=== PATIENT | female | born 1975 | race Caucasian/White ===

== ENCOUNTER 2021-06-28 15:46 | Outpatient (CLI) | payer OTHER, SELFPAY ==
--- NOTE | 2021-06-28 15:50 | RAD_ITS ---
STUDY: X-RAY - LEFT ELBOW REASON FOR EXAM: Female, 46 years old. epicondylitis lateral Left TECHNIQUE: 3 view(s) of the elbow. COMPARISON: None. FINDINGS: BONES: No fracture demonstrated. JOINTS: No dislocation. SOFT TISSUES: Unremarkable. RAD/Elbow min 3 Views IMPRESSION: Unremarkable x-ray of the elbow. Electronically Signed: Maddison Valdez MD at 5:10 EDT ,
== END 2021-06-28 23:59 | disposition home or self-care (01) ==
LOC: MTRAD 15:50
PROVIDERS: PCP Family Medicine; Referring Provider Family Medicine; Visit Provider Family Medicine
DX: M77.12 Lateral epicondylitis, left elbow (principal)
CPT/HCPCS: 73080

== ENCOUNTER 2021-09-02 08:00 | Outpatient (RCR) | payer OTHER, SELFPAY ==
--- NOTE | 2021-09-02 10:10 | BH.SGPN.GN ---
Behaviors/Verbalizations/Mental Status: []Pt alert and oriented, neatly dressed and groomed. Eye contact good. Motor activity appropriate. Speech within normal limits. Affect congruent, mood euthymic. Thoughts linear, logical, no signs of hallucinations or delusions. Client Response/Progress/Benefit: []Pt responded well to session AEB pt listening attentively to others and taking notes. Pt was engaged throughout discussion introducing the topic of self-care and its importance. Group identified myths about self-care, such as self-care is selfish, takes too much money, takes too much time, has to be fun, and means one thinks they are more important than others. Contributed ideas as group identified self-care benefits to include: improved mood, reduced avoidance, better relationships, and more productivity. Pt appeared to benefit from increased knowledge of the importance and benefits of self-care. Will continue IOP tx to prevent decompensation, gain healthy coping skills, and reduce isolation. Narrative Note: []
--- NOTE | 2021-09-02 10:22 | BH.COMM_ITS ---
Communication Note - Communication with Client Communication Note: Met with pt to complete initial paperwork. No significant changes to pre-admission screening. Completed [facility] Scre[facility]. Mild to moderate risk. Pt reports chronic passive thoughts of ?my family would be better off without me? though denies any active thoughts, plan, or intent. She has a hx of 1 suicide attempt via OD in 2007 in which pt was not hospitalized and did not tell anyone at the time. Denies any other hx of attempt or gestures. Denies any active thoughts since that time. Denies access to lethal means. Reports her protective factors as children (16,18) and . I don't really have intent because I know killing myself would hurt my children. Denies active SI, plan, or intent today. Smiling at times. Appears motivated. Has been compliant with weekly individual counseling since intake. Met with her outpatient psychiatrist 2 weeks ago. Does not present as imminent danger due to no active SI, plan, or intent, contracts for safety, and reports protective factors. She denies hx of self-harm as well. Case discussed with Dr. Cortes with plan to admit to [facility] level of care with dx of F33.2.
--- NOTE | 2021-09-02 11:15 | BH.SGPN.GN ---
Behaviors/Verbalizations/Mental Status: []Pt alert and oriented, neatly dressed and groomed. Eye contact good. Motor activity appropriate. Speech within normal limits. Affect congruent, mood euthymic. Thoughts linear, logical, no signs of hallucinations or delusions. Client Response/Progress/Benefit: []Pt engaged participant AEB completing self-assessment worksheet and contributing input during discussion. Participated throughout group discussion on the various areas of self-care. Pt completed worksheet which identified current self-care practices and what self-care activities pt wants to start using. Pt selected physical self-care to begin practicing more consistently. Pt plans to do this by reducing isolation by changing her scenery every day and getting enough sleep. Appeared to benefit from completing the self-care evaluation and gaining insights into current self-care practices, as well as identifying areas in which she would like to improve upon. Will continue IOP tx to prevent decompensation, gain healthy coping skills, and reduce isolation. Narrative Note: []
--- NOTE | 2021-09-06 09:05 | BH.SGPN.GN ---
Behaviors/Verbalizations/Mental Status: [] Eye contact is good. Motor activity is appropriate. Appearance is casual. Speech is rapid, pressured. Mood is euthymic. Affect is full. Thoughts are linear and logical. No evidence of psychosis. Reviewed daily check in sheet and no reports of suicidal ideations or intent. Client Response/Progress/Benefit: [] Pt was an active participant in group discussion. Attentive. Daily symptom tracker notes 04/16/ for depression and irritability. Mental health wins were spending more time with her teenage sons. States that her depression was so severe that she would not leave her bedroom for days I lost a lot of time with my boys. Significant guilt about his as the are growing up and soon will be gone. Since starting a new medication recent she has noted improved mood and less isolation. More engaged and motivated. I'm only spending one day a week in my room. She also reports improved communication with her and decreased irritability. He speech is very rapid and pressured however she states that this is her baseline I'm always verbose. When asked to describe her emotion today she was unable stating I'm not sure ... I don't know. Progress noted which she attributes only to a medication change. Benefited from group support, encouragement, and feedback. Will continue in IOP to improve functioning, decreased isolation, increase healthy coping, and stabilize mood. Narrative Note: []
--- NOTE | 2021-09-06 10:10 | BH.SGPN.GN ---
Behaviors/Verbalizations/Mental Status: []Pt alert and oriented, neatly dressed and groomed. Eye contact good. Motor activity appropriate. Speech fast and and circumstantial. Affect congruent, mood euthymic. Thoughts linear, logical, no signs of hallucinations or delusions. Client Response/Progress/Benefit: []Pt was an engaged participant AEB pt listening attentively to others. Attentive during psychoeducation on communication styles. Assisted group with identifying barriers of effective communication which included: ?dropping hints,? texting, assumptions, yelling, and hurtful language. Pt identified they most often use passive-aggressive communication as pt is often sarcastic. Pt reports being passive-aggressive impacts pt by causing tension in relationships and not being direct with needs. Benefited from increased awareness of different communication barriers, styles, and the importance of communicating effectively to improve mental wellness. Will continue IOP tx to improve emotional regulation skills, increase self-awareness, and improve daily functioning. Narrative Note: []
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
--- NOTE | 2021-09-07 10:10 | BH.SGPN.GN ---
Behaviors/Verbalizations/Mental Status: []Pt alert and oriented, neatly dressed and groomed. Eye contact good. Motor activity appropriate. Speech rapid and tangential-interrupting others at times. Affect congruent, mood anxious. Thoughts linear, logical, no signs of hallucinations or delusions. Client Response/Progress/Benefit: []Pt responded well to session AEB taking notes throughout and listening attentively to others. Pt was attentive throughout group activity identifying famous individuals and how they overcame failure to be successful. Pt helped group identify how fear of failure can impact mental health and relationships. Pt personally identified it leads to fear of success, isolation, and hurts relationships. Pt participated in experiential activity, working with group members to problem solve. Appeared to benefit from increased knowledge of fear of failure. Will continue IOP tx to promote emotional regulation skills, combat distortions, and improve overall functioning. Narrative Note: []
[2021-09-07 10:27] VITALS: BP 145/91; PULSE 73
--- NOTE | 2021-09-07 11:15 | BH.SGPN.GN ---
Behaviors/Verbalizations/Mental Status: []Pt alert and oriented, neatly dressed and groomed. Eye contact good. Motor activity appropriate. Speech rapid and tangential. Affect congruent, mood euthymic. Thoughts linear, logical, no signs of hallucinations or delusions. Client Response/Progress/Benefit: []Pt responded well to session, engaged in the experiential activity and attentive throughout group processing. Pt reported fear of failure has kept pt from using her strengths and quality time with friends and family. Pt completed fear of failure worksheet and was able to identify thoughts and behaviors that reinforce personal fear of failure including unrealistic goals, self-sabotage, avoidance, and negative self-talk. Pt participated in small group discussion regarding strategies to overcome fear of failure. Identified wanting to work on setting realistic goals to reduce isolation and improve boundaries. Appeared to benefit from increased knowledge of strategies to combat fear of failure and gaining self-awareness. Pt will continue IOP tx to improve daily functioning, reduce negative thinking patterns, and improve self-awareness. Narrative Note: []
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
--- NOTE | 2021-09-07 13:14 | BH.DR.ITP ---
Initial Treatment Plan Patient Information Visit Information: ADMISSION DATE: EXPECTED LOS: 4-6 weeks Problems/Symptoms Problem #1:: Depression Symptom:: Sadness, hopelessness, worthlessness, anhedonia, guilt, passive thoughts of , low energy Problem #2:: Anxiety Symptom:: Worry, rumination, panic attacks
--- NOTE | 2021-09-27 11:15 | BH.SGPN.GN ---
Behaviors/Verbalizations/Mental Status: [] Client alert and oriented, casually dressed and appropriately groomed. Eye contact good. Motor activity appropriate.? Speech within normal limits. Affect congruent, mood euthymic. Thoughts linear and intact. no signs of delusions or hallucinations. Client Response/Progress/Benefit: [] Client responded well to session AEB listening attentively to peers, providing input, as well as taking notes. Client contributed throughout psychoeducation on different boundary setting styles and processing with group results of continuum. Client shared how she initially thought she was really strong at setting boundaries but, realizes her guilt prevents her from following through. Participated in group discussion brainstorming on potential negatives and positives of different boundary setting styles.Group provided with [place] setting tips and homework to practice one new boundary setting skill. Seemed to benefit from increased awareness of how different boundary styles can impact mental health. Will continue IOP tx to increase consistent application of skills, increase self-care and depression management, and increase overall functioning. Narrative Note: []
== END 2021-09-08 23:59 ==
LOC: BHIOP 08:00
PROVIDERS: PCP Family Medicine; Referring Provider Psychiatry & Neurology Psychiatry; Visit Provider Psychiatry & Neurology Psychiatry
DX: F33.2 Major depressive disorder, recurrent severe without psychotic features (principal); F41.8 Other specified anxiety disorders; Z79.899 Other long term (current) drug therapy; E66.9 Obesity, unspecified
CPT/HCPCS: S9480; 90853

== ENCOUNTER 2021-09-09 07:26 | Outpatient (RCR) | payer OTHER, SELFPAY ==
[2021-09-09 00:52] VITALS: BP 145/91; PULSE 73
--- NOTE | 2021-09-09 09:00 | BH.SGPN.GN ---
Behaviors/Verbalizations/Mental Status: [] Eye contact is good. Motor activity is appropriate. Appearance is casual. Speech is Appropriate. Mood is irritable. Affect is full. Thoughts are linear and logical. No evidence of psychosis. Reviewed daily check in sheet and no reports of suicidal ideations or intent. Client Response/Progress/Benefit: [] Pt was an active participant in group discussion. Attentive. Provided appropriate feedback. Daily symptom tracker notes 1/5 for depression and anxiety and 2/5 for irritability. Reports that her mood as been pretty consistent this week with no outstanding distress. Reports that she is functioning more effectively this week as well. Pt was significantly engaged in group discussions and shared extensively on the topics discussed from mental health stigma, feeling invalidated, and coping with emotions, acceptance, opposite-action, and being vulnerable. Benefited from group discussions and support. Pt appears to benefit from support and interaction with peers about mental health topics during process group. Will continue in IOP to maintain safety, increase functioning, prevent decompensation, and stabilize mood. Narrative Note: []
--- NOTE | 2021-09-09 10:15 | BH.SGPN.GN ---
Behaviors/Verbalizations/Mental Status: []Pt alert and oriented, neatly dressed and groomed. Eye contact good. Motor activity appropriate. Speech tangential. Affect congruent, mood anxious and dysthymic. Thoughts linear, logical, no signs of hallucinations or delusions. Client Response/Progress/Benefit: []Pt attentive listening to peers, contributing at times, and taking notes during session. Listened as the group brainstormed the positive and negative aspects of stress on physical and mental health. Group did well to identify the benefits of stress as well as the impact of distress on performance and mental health. Pt?s top stressors right now are mental health, lack of self-esteem, perfectionism, and procrastination. Pt shared her ?stress jar? is 75% full as medication is helping reduce symptoms, but pt still feels overwhelmed. Pt shared when her 'stress jar' is overflowing, pt gets short-tempered and isolates. Pt seemed to benefit from increased self-awareness of current stressors and impact stress has on mental health. Will continue IOP tx to promote use of healthy coping skills, reduce negative thinking patterns, and improve self-confidence. Narrative Note: []
--- NOTE | 2021-09-09 11:15 | BH.SGPN.GN ---
Behaviors/Verbalizations/Mental Status: []Pt alert and oriented, neatly dressed and groomed. Eye contact good. Motor activity appropriate. Speech tangential and rapid. Affect full, mood agitated. Thoughts linear, logical, no signs of hallucinations or delusions. Client Response/Progress/Benefit: []Pt participated at times during group discussions. Attentive during psychoeducation on the 4 A's of Coping with Stress (Avoid, Alter, Adapt, Accept). Participated in experiential activity in which group members had to utilize stress management skills in the moment. Pt agreed with peers that their anxiety and sense of urgency was a barrier and helped group problem-solve solutions. Pt engaged in review of the 4 A?s and picked wanting to work on adapting by redefining success and accepting small wins to reduce stress over time.? Benefited from processing in the moment stress management strategies and identifying new ways to cope with stress. Will continue in IOP to reduce negative thinking patterns, improve self-care, and improve daily functioning. Narrative Note: []
--- NOTE | 2021-09-09 13:39 | BH.MDN_ITS ---
Multi-Disciplinary Note - Note 45-min Individual Time Started:: 12:15 Date: 09/09/21 Purpose of session/treatment goals addressed:: Met with patient to review progress and currently symptoms. Goal-setting for treatment plan. Eye Contact:: Good Motor Activity:: Appropriate Speech:: Pressured Mood:: Anxious, Depressed Affect:: Congruent Thoughts:: Linear, Logical, No evidence of hallucinations/delusions noted Staff Interventions:: psychoeducation on: - cognitive distortions, CBT techniques, treatment planning, goal setting Client Response:: Pt reports that she is enjoying the IOP program and believes that she is benefiting. When asked about goals for the program pt reported; improving communication with support (listening more, not correcting or instructing them), increased patience, increased empathy for others, and taking more control of my life. She shared that it would benefit her to decreased negative automatic thoughts, be aware of cognitive distortions and mistaken beliefs, and to isolate less. Pt displayed numerous cognitive di stortions throughout the session which are heavily influencing her thoughts and actions. Primary distortions are mind-reading and absolute thinking. She reports isolating less and feeling better since starting new medication a couple weeks ago however continues to struggle with thought-reframing, perfectionism, communication, and irritability per her report. She reports feeling guilty about isolating and avoiding family for several months and feels intense responsibility to fix this. Risks/Concerns:: no risks or concerns noted. Progress Toward Goals/Plan:: Progress noted per pt report. She reports benefit from group psychoeducation and support. Since starting new medication a couple weeks ago her depression has decreased and she is not isolating in her room daily. She continues to report significant depression, negative automatic thoughts, guilt, anxiety, and irritability. Reports that her negative thoughts are emotionally and physically exhausting however despite this she is more engaged and action. While the medication has improved energy and motivation to leave her room her depression, cognitive distortions, and negative thoughts remains considerable. We agreed to start with cognitive distortions and she was given assignment to review cog distortions worksheet and complete a thoughts log over the holiday weekend with the goals to increase awareness of how often she is utilizing cognitive distortions. Time Stopped:: 13:00
--- NOTE | 2021-09-09 13:40 | BH.MTP_ITS ---
[facility] Treatment Plan - Patient Information Program Physician:: Rosa Vaughn Primary Therapist:: Hong Sweeney - Psychiatric Diagnoses Psychiatric Diagnoses:: 1. Major depressive disorder, recurrent, severe without psychosis. 2. Social anxiety disorder. 3. Alcohol use disorder in full remission since 2018 Diagnosis Code(s):: F33.2 - Estimated LOS Estimated LOS (in weeks):: 6 Problem/Goal #1 - Problem/Goal #1 Stated Goal:: Client will reduce depressive symptoms, worthlessness, lack of concentration, and negative core beliefs associated with major depressive disorder AEB by self-report and reduction of scores on the DSM-5 depression domain. Description of Barriers: Strong core mistaken beliefs, significant negative automatic thoughts, poor communication skill, limited social cues, long-standing depression, hx of limited progress in outpatient mental health treatment. Functional Impact: Pt was recently severely isolating due to depression (often staying in her room for days). Negative automatic thoughts impact her communication and behaviors. Not completing ADLS consistently. Mental health impacting familial responsibilities and social skills. Goal Relevant Strengths/Supports: outgoing, motivated, intelligent, engaged in treatment. - Objectives Objective #1 Stated Objective: Client will implement a thought log to record events, thoughts, emotions and behaviors. Will also identify 2-3 cognitive distortions that lead to depressive symptoms. Interventions: Through individual and group counseling client will learn about CBT, connection between thoughts/emotions/behaviors and cognitive distortions. Therapist will assign the client to self-monitor thoughts, feeling, and actions in daily journal; process the journal material to challenge depressive thinking patterns and replace them with reality-based thoughts. Discharge Criteria: Will be able to identify 2-3 cognitive distortions and will have completed a thought log. Target Date: 11/02/21 Review Date: 09/28/21 Objective #2 Stated Objective: Client will completed Mistaken Beliefs Questionnaire and review with therapist. Client will create realistic affirmations to challenge mistaken beliefs and be able to practice challenging these beliefs. Interventions: Through individual and group counseling will provide psychoeducation on mistaken beliefs and their role in negative automatic thoughts and depression. Discharge Criteria: Completed mistaken beliefs questionaire and review identified belief with therapist. Develop 2-3 strategies to challenge mistaken beliefs which lead to negative automatic thoughts. Target Date: 11/02/21 Review Date: 09/28/21 Problem/Goal #2 - Problem/Goal #2 Stated Goal:: Client will increase emotional regulation and reduce intensity and duration of anxiety symptoms AEB by pt self-report and reduction on anxiety domain of DSM- 5 scales. Description of Barriers: Strong core mistaken beliefs, significant negative automatic thoughts, poor communication skill, limited social cues, long-standing anxiety, hx of limited progress in outpatient mental health treatment. Functional Impact: In combination with depression pt's anxiety has contributed to isolation, avoidance, and conflict with support. Goal Relevant Strengths/Supports: outgoing, motivated, intelligent, engaged in treatment. - Objectives Objective #1 Stated Objective: Client will learn and implement 2-3 calming skills to reduce overall anxiety and manage anxiety Interventions: Through individual and group counseling will help client increase awareness of anxiety triggers and educate client on the ways anxiety impacts overall health. Therapist will teach client various calming and mindfulness strategies to promote emotional regulation and reduction of anxiety. Therapist will encourage client to implement healthy coping skills on a regular basis. Discharge Criteria: Be able to identify and consistently use 3 calming skills f or anxiety Target Date: 11/02/21 Review Date: 09/28/21
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
--- NOTE | 2021-09-13 09:05 | BH.SGPN.GN ---
Behaviors/Verbalizations/Mental Status: [] Eye contact is good. Motor activity is appropriate. Appearance is casual. Speech is pressured. Mood is depressed. Affect is full. Thoughts are linear and logical. No evidence of psychosis. Reviewed daily check in sheet and no reports of suicidal ideations or intent. Client Response/Progress/Benefit: [] Pt was an active participant in group discussion. Attentive. Daily symptom tracker notes 2/ for depression and anger. Pt states I'm struggling to identify any positives today. Shared with the group dynamic changes with communication with her and how this impacts her mental health and their relationship. She talked at length regarding this and was able to identify her frustrations and obstacles to assertive and healthy communication with her spouse particularly. Group had a brief discussion on healthy communication and that provided some feedback and examples of ways they have worked through obstacles. Benefited from group support, encouragement, and feedback. Will continue in IOP to maintain safety, increase healthy coping, decrease negative automatic thoughts, and improve functioning. Narrative Note: []
--- NOTE | 2021-09-13 10:10 | BH.SGPN.GN ---
Behaviors/Verbalizations/Mental Status: [] Client alert and oriented, casually dressed and groomed. Eye contact good. Motor activity appropriate. Speech within normal limits. Affect congruent, mood euthymic. Thoughts linear, logical, no signs of hallucinations or delusions. Client Response/Progress/Benefit: [] Client responded well to session AEB sharing and listening attentively to others. Client discussed how big supports for her included AA groups, sponsor, and community resources. Clinician provided psychoeducation on types of support including internal and external supports. Client participated in experiential activity illustrating the importance of having multiple social supports. Client provided supportive feedback and problem solving throughout group activity. Client participated in group processing of the activity.. Client appeared to benefit from increased knowledge of the benefits of social support and greater self-awareness. Will continue IOP treatment to continue increasing application of healthy coping skills and decreasing negative self-talk to improve daily functioning. Narrative Note: []
--- NOTE | 2021-09-13 11:10 | BH.SGPN.GN ---
Behaviors/Verbalizations/Mental Status: []Client alert and oriented, casually dressed and groomed. Eye contact good. Motor activity appropriate. Speech within normal limits. Affect congruent, mood irritable. Thoughts linear, logical, no signs of hallucinations or delusions Client Response/Progress/Benefit: []Client was an active participant throughout AEB contributing to discussion, providing personal examples, and taking notes. Client processed emotions she felt in the activity and how she coped in the moment with indicating high stress during group due to challenge of working together. She provided input during discussion on the types of support our supports can provide. Client was able to identify current support system and barriers that get in the way of using supports. Client stated she struggles most withe emotional support due to struggling to be vulnerable with others. Connected impact this can have on her mental health. Client seemed to benefit from identifying the type of support she needs to work on improving. Client recommended to continue IOP to continue use of healthy coping, challenge distorted thoughts and prevent decompensation. Narrative Note: []
--- NOTE | 2021-09-15 09:05 | BH.SGPN.GN ---
Behaviors/Verbalizations/Mental Status: [] Eye contact is good. Motor activity is appropriate. Appearance is casual. Speech is pressured. Mood is euthymic. Affect is full. Thoughts are linear and logical. No evidence of psychosis. Reviewed daily check in sheet and no reports of suicidal ideations or intent. Client Response/Progress/Benefit: [] Pt was an active participant in group discussion. Attentive. Emotion for today is optimistic. Daily symptom tracker notes 2/5 for depression and anger. Mental health win is feeling motivated and shared that she is getting out and participating in more social activities. Increased awareness of cognitive distortions since entering IOP identifying that she often mind reads others and believes that she knows what they are thinking about her and its usually negative. Shared that her thoughts are so automatic that seem to be out of her control which makes changing them seem impossible. She shared current stressors and how they impact her mental health . Benefited from group support, encouragement, and feedback. Progress noted as she reports increased awareness of cog. distortions. Will continue in IOP to maintain safety, increase healthy coping, and to improve functioning. Narrative Note: []
--- NOTE | 2021-09-15 10:20 | BH.SGPN.GN ---
Behaviors/Verbalizations/Mental Status: [] Eye contact is good. Motor activity is appropriate. Appearance is casual. Speech is Appropriate. Mood is anxious. Affect is congruent. Thoughts are linear and logical. No evidence of psychosis. Client Response/Progress/Benefit: [] Pt was an active participant in group discussion. Attentive during psychoeducation on Problem-Solving in the Moment Protocol. Participated in group experiential activity. Pt provided feedback during interactive group discussion in which pt and peers worked through an example of a problem (Managing Anxiety) in which they identified a goal (minimizing anxiety) and identified barriers. Barriers identified included lack of awareness, mental health stigma, distorted thinking, not having the tools/resources, and being afraid to fail. During the experiential activity pt worked with peers to problem solve using the Problem Solving in the Moment Protocol. Group was able to complete the activity and pt was able to practice in the moment problem-solving and make connections between problem-solving for activity and in real-life situations. Increased awareness of problem-solving strategies. Will continue in IOP to prevent decompensation, increase healthy coping skills, and improve functioning. Narrative Note: []
--- NOTE | 2021-09-15 11:20 | BH.SGPN.GN ---
Behaviors/Verbalizations/Mental Status: []Pt alert and oriented, casual dress, hygiene tended to. Eye contact good. Motor activity WNL. Speech rapid. Affect congruent, mood anxious and dysthymic. Thoughts linear, logical, no signs of hallucinations or delusions. Client Response/Progress/Benefit: []Pt engaged in session as evidenced by pt listening to others and providing input throughout. Pt practiced in the activity and expressed feeling frustration and anxious, but pt was able to cope by listening and problem-solving with peers. Pt identified a goal pt wants to work on which is to get back into crafting by making a sign for her car. Pt?s barriers included frustration, resentment, and getting easily overwhelmed. Pt also identified steps she could take such as start by driving to the place she keeps her crafts, selecting the specifics for her sign, and asking a support for help with follow through. Pt seemed to benefit from learning about problem solving method and rehearsing problem-solving skills in the moment. Pt will continue IOP tx to reduce negative thinking patterns, improve overall functioning, and reduce avoidance. Narrative Note: []
--- NOTE | 2021-09-16 09:05 | BH.SGPN.GN ---
Behaviors/Verbalizations/Mental Status: [] Eye contact is good. Motor activity is appropriate. Appearance is casual. Speech is pressured. Mood is anxious. Affect is congruent. Thoughts are linear and logical. No evidence of psychosis. Reviewed daily check in sheet and no reports of suicidal ideations or intent. Client Response/Progress/Benefit: [] Pt was an active participant in group discussion. Attentive. Daily symptom tracker notes 04/16/ for depression and agitation. Emotions for today is melancholy, distracted, and anxious. She reports a mental health win as working on the communication dynamics with her . She has discussed this in past groups and feels that effective and healthy communication has been a challenge for them. She feels that she is addressing her issues (mental health and communication) rather than ignoring, ruminating or over-analyzing. She shared her stressors. Continues to verbalize progress which she mainly believe is related to her medication. Progress noted. Benefited from group support, encouragement, and feedback. Will continue in IOP to maintain safety, improve functioning, and increase healthy coping skills. Narrative Note: []
--- NOTE | 2021-09-16 10:15 | BH.SGPN.GN ---
Behaviors/Verbalizations/Mental Status: []Eye contact is good. Motor activity is appropriate. Appearance is casual. Speech is tangential. Mood is dysthymic. Affect is constricted. Thoughts are linear and logical. No evidence of psychosis. Client Response/Progress/Benefit: []Pt was an active participant in group discussion and activity. Attentive during psychoeducation on the stages of change. Pt participated in interactive discussion on emotions associated with change (happy, anxious, proud, shocked, surprised, guilty, etc). Pt along with peers identified barriers that may prevent one from making change such as fear of failure, all or nothing thinking, and not always giving herself permission. Group able to identify the benefits to changes such as acceptance, patience, self-awareness, and personal growth. Benefited from increased awareness of emotions related to change, the change process, and benefits/barriers to change. Will continue in IOP to increase emotional regulation skills, reduce negative thinking patterns, and improve daily functioning. Narrative Note: []
--- NOTE | 2021-09-16 14:29 | BH.MDN ---
Multi-Disciplinary Note - Note 60-min Individual Time Started:: 12:20 Date: 09/16/21 Purpose of session/treatment goals addressed:: Reviewed progress and current symptoms. Addressed treatment plan goal 1. Eye Contact:: Good Motor Activity:: Appropriate Appearance:: Casual Speech:: Rapid Mood:: Depressed Affect:: Full Thoughts:: Linear, Logical, No evidence of hallucinations/delusions noted Staff Interventions:: thought challenging, psychoeducation on: - cognitive distortions., CBT techniques, rapport building Client Response:: Pt was tearful throughout the session reporting significant self-critical thoughts. She reports being frustrated with a myriad of her actions and responses while in IOP and at home. I'm extreme ? I either talk too much or I shut down ? there is no in-between. Hyper-critical of being too talkative in group today which lead to memories of her mother telling her to shut-up. Talks excessively because she wants to help, be seen as smart, and solve the problem. Admits to shutting down at times during group activities this week as well due to struggling with an obstacle. Pt shared her thought log with therapist and we worked on challenging cognitive distortions. She was tearful stating I'm going to fail at this I'm fearful that I won't be able to fix things. Fear of failure along with numerous cognitive distortions were identified in the thought log. We challenged several and she responded well. Plan is to continue with thought log and add portion where she identifies cognitive distortions used with goal to increased awareness and accept that these thoughts are distortions and not facts. Risks/Concerns:: No risks or concerns noted Progress Toward Goals/Plan:: Progress noted per pt report. She continues to be consistent and engaged in IOP. Increased awareness of cognitive distortions and has been maintaining a thoughts log which we reviewed. Pt was tearful throughout the session reporting an overabundance of negative automatic thoughts and overwhelming emotions. She mind-reads every action or non-action from those around her as being the result of something she did wrong or something she did to upset them. While she is not isolating in her room she continues to present with significant depression, anxiety, and guilt which impact her functioning. Plan is to continue in IOP to maintain safety, improve functioning, and increase healthy coping. Time Stopped:: 13:15
--- NOTE | 2021-09-20 09:05 | BH.SGPN.GN ---
Behaviors/Verbalizations/Mental Status: [] Eye contact is good. Motor activity is appropriate. Appearance is casual. Speech is Appropriate. Mood is euthymic. Affect is full. Thoughts are linear and logical. No evidence of psychosis. Reviewed daily check in sheet and no reports of suicidal ideations or intent. Client Response/Progress/Benefit: [] Pt was an active participant in group discussion. Attentive. Daily symptom tracker notes 25 for depression/anxiety and /5 for irritability. Emotion for today is upbeat. Able to identify several mental health wins this AM which may have contributed to her positive mood. She went for a walk this AM and instead of going back to bed chose to sit on the porch. She also reached out to for company rather than sitting alone with myself. She also gave herself permission to complete self-care yesterday afternoon. Its weird she states when discussing accomplishing tasks which improve her mental health. Her stressors continues to be communication with her and her negative automatic thoughts. Progress noted per pt report. Benefited from group support, encouragement, and feedback. Will continue in IOP to maintain safety, increase healthy coping, and to prevent decompensation. Narrative Note: []
--- NOTE | 2021-09-20 10:15 | BH.SGPN.GN ---
Behaviors/Verbalizations/Mental Status: [] Eye contact is good. Motor activity is appropriate. Appearance is casual. Speech is pressured/rambling. Mood is anxious. Affect is congruent. Thoughts are linear and logical. No evidence of psychosis. Client Response/Progress/Benefit: [] Pt was an active participant in group discussions. Attentive during psychoeducation. Participated in experiential activity. Pt participated in interactive discussion on the consequences of unhealthy expression of emotions. Pt along with peers identified several consequences which included; judgement from others, can push people away, people will keep information from us for fear we cannot handle it, we are perceived as angry or crazy, impacts our ability to effectively communicate. Pt also participated in interactive discussion on common potholes to effectively communicating which included; not focusing on topic at hand, too many issues/concerns at once, assumptions, jumping to conclusions, sarcasm, listening only to respond, and mental health struggles. Pt was able to relate and make connections between the experiential activity and the overall topic. Benefited from increased awareness of how stress and emotions can impact one's ability to communicate. Will continue in IOP to prevent decompensation, increase healthy coping, and improve functioning. Narrative Note: []
--- NOTE | 2021-09-20 11:10 | BH.SGPN.GN ---
Behaviors/Verbalizations/Mental Status: []Pt alert and oriented, neatly dressed and groomed. Eye contact good. Motor activity appropriate. Speech rapid, circumstantial. Affect constricted, mood anxious. Thoughts linear, logical, no signs of hallucinations or delusions. Client Response/Progress/Benefit: []Pt engaged in session AEB client listening attentively to peers and providing input. Attentive during psychoeducation on 4 zones of regulation. Pt able to identify feelings and behaviors for each zone. Pt identified coping skills one can use to support self in each zone. Pt stated belief that pt is in the yellow and green zone today as pt feels social and more motivated, but pt is also anxious about maintaining this. Pt reports continuing to set goals and practice self-care will help pt stay regulated. Benefited from increased education on zones of regulation or stages of alertness for emotions and healthy coping skills to use for each zone. Pt will continue IOP tx to improve interpersonal effectiveness skills, increase emotional regulation skills, and reduce isolation. Narrative Note: []
--- NOTE | 2021-09-22 09:01 | BH.SGPN.GN ---
Behaviors/Verbalizations/Mental Status: []Eye contact is good. Motor activity is appropriate. Appearance is casual. Speech is Appropriate. At times rambling. Mood is anxious. Affect is congruent. Thoughts are linear and logical. No evidence of psychosis. Reviewed daily check in sheet and no reports of suicidal ideations or intent. Client Response/Progress/Benefit: []Client responded well to session AEB listening attentively to others and providing feedback and thoughts to group. Client identified mental health win as taking her dogs for a walk yesterday after getting up and didn't go back to bed. Client reported additional win as having self compassion this morning to allow herself to relax. Client stated current stressor is not having space for her crafting things that she has been storing at a friends house but this friend is now moving. Client reported additional mental health stressor is going to a family reunion and worried about family drama. Client reported she is trying to challenge this negative thinking and focus on the potential fun and memories that she can have. Seemed to benefit from peer support and expressing thoughts. Client to continue IOP to consistently apply healthy coping skills, challenge distorted thoughts and prevent decompensation. Narrative Note: []
--- NOTE | 2021-09-22 11:15 | BH.SGPN.GN ---
Behaviors/Verbalizations/Mental Status: []Pt alert and oriented, neatly dressed and groomed. Eye contact good. Motor activity appropriate. Speech tangential. Affect constricted, mood anxious and dysthymic. Thoughts linear, logical, no signs of hallucinations or delusions. Client Response/Progress/Benefit: []Pt engaged during activity, encouraging peers and contributed as group brainstormed ideas on how to cope with internal barriers that keep pts stuck from moving towards goals. Able to identify barriers to desired reality. Identified barriers to current reality to include: all or nothing thinking, lack of motivation, and fear of making progress. Pt wants to work on overcoming the barrier of all or nothing thinking by reminding herself that there is a ?good rutledge? and that pt can be struggling and making progress. Benefited from group by identifying obstacles and solutions to desired reality.? Pt will continue IOP tx to prevent self-reported self-sabotaging behaviors, improve overall functioning, and reduce negative thinking. Narrative Note: []
--- NOTE | 2021-09-22 15:23 | BH.MDN ---
Multi-Disciplinary Note - Note 45-min Individual Time Started:: 12:30 Date: 09/22/21 Purpose of session/treatment goals addressed:: Reviewed current symptoms and progress in IOP. Addressed treatment plan goals 1 and 2. Eye Contact:: Good Appearance:: Casual Speech:: Pressured, Rapid Mood:: Anxious Affect:: Congruent Thoughts:: Linear, Logical, No evidence of hallucinations/delusions noted Staff Interventions:: psychoeducation on: - mistaken beliefs, perfectionism, CBT techniques Client Response:: Pt did not complete homework activity to track thoughts, emotions, and cognitive distortions. She also did not fully complete mistaken beliefs questionnaire that was given to her at the beginning to the week and we spent a few moments reviewing this and completing it together (she had challenges with some questions). She was able to verbally recall identifying using absolute thinking on several occasions. Tearful stating I can't be OK with being in the rutledge zone. Belief that she her thoughts and actions are either right or wrong. We spent some time challenging and tryin to reframe this thoughts however it is very engrained. She is able to identify cog distortions however struggles to reframe or challenge due to these strong core beliefs. We practiced challenging and reframing thoughts about upcoming family reunion this weekend. Challenged unrealistic expectations. Also discussed how her communication specifically excessive talking impacts her relationships. She gave examples of feeling compelled to talk (sometimes over people) and dominate a conversation which has led to pushing others away. We set up goal to practice limiting her talking in group to sharing 3 times for less than 30 seconds. Normalized working on this goal as we have had patients set goals to increase sharing in group. Risks/Concerns:: no risks or concerns noted. Progress Toward Goals/Plan:: Progress noted. She believes that obstacles and setbacks are not impacting her as much. States If something goes wrong it doesn't ruin my whole day. Gave recent examples. Originally credited this to her medications however was able to admit that she is beginning to utilize skills more consistently. Pt has very strong core mistaken beliefs which are impacting most of her daily thoughts. She second guesses all her actions and interactions with others. She mentions that after she shares in group she immediately criticizes herself and believes other are judging her negatively. She did not completed assignments given however agrees to complete thought log previous to next session. Plan is to start with core beliefs as addressing these may increase probability of reframing and thought challenging being more effective. She was given a psychoeducation sheet on mistaken beliefs specifically perfectionism to review. Time Stopped:: 13:15
--- NOTE | 2021-09-27 09:00 | BH.SGPN.GN ---
Behaviors/Verbalizations/Mental Status: []Pt alert and oriented, neatly dressed and groomed. Eye contact good, motor activity appropriate, speech WNL. Affect congruent, mood anxious. Thoughts linear, logical, no signs of hallucinations or delusions. No risk reported on pt's daily symptom tracker. Client Response/Progress/Benefit: []Pt responded well to session, providing encouragement to peers. Pt reports feeling overwhelmed this morning as pt recently got back from a family reunion and now she is realizing there's a lot of projects at home. Pt is trying to challenge her all or nothing thinking and focus on small steps she can take, rather than telling herself she has to do everything at once. Pt stated the reunion went well and it gave pt an opportunity to practice healthy coping skills like focusing on the big picture and managing irritability. Pt appeared to benefit from reflecting on use of coping skills and identifying more realistic goals for herself. Pt will continue IOP tx to prevent decompensation, challenge distorted thinking, and improve daily functioning. Narrative Note: []
--- NOTE | 2021-09-27 10:10 | BH.SGPN.GN ---
Behaviors/Verbalizations/Mental Status: [] Eye contact is good. Motor activity is appropriate. Appearance is casual. Speech is Appropriate. Mood is euthymic. Affect is congruent. Thoughts are linear and logical. No evidence of psychosis. Client Response/Progress/Benefit: [] Client responded well to session AEB sharing and listening attentively to others. Client participated in group discussion defining boundaries and why having healthy boundaries is important. Client shared recent experiences where she had to use boundaries and the positives that came from it. Client appeared to connect to psychoeducation on types of boundaries, including physical, emotional, and intellectual. Client listened attentively and nodding throughout discussion in which group members shared personal examples of different types of boundaries. Client noted times where others have invalidated her and she had to strengthen her emotional boundaries. Client appeared to benefit from increased knowledge of the types of boundaries and increased self-awareness of personal boundaries. Will continue IOP treatment to increase depression management skills and independent coping skills to improve daily functioning. Narrative Note: []
--- NOTE | 2021-09-28 09:00 | BH.SGPN.GN ---
Behaviors/Verbalizations/Mental Status: []Pt alert and oriented, casually dressed and groomed. Eye contact good. Motor activity appropriate. Speech within normal limits. Affect congruent, mood euthymic. Thoughts linear, logical, no signs of hallucinations or delusions. Reviewed pt?s symptom tracker, no risk for suicidal ideation, plan, or intent. Client Response/Progress/Benefit: []Client responded well to session AEB client listening attentively to peers and sharing thoughts and feelings. Client reported mental health positive as going to movie last night with her despite wanting to stay home. Client stated it was positive to get out of the house and connect with her . Client reported additional positive as improved communication with her . Client reported she also has been working on setting more realistic expectations in regards to her house chores. Client reported current stressor is having to start taking steps to work on slowly cleaning her house room by room. Client seemed to benefit from connection with peers and expressing thoughts and feelings. Client to continue IOP to improve emotion regulation, increase consistent use of healthy coping and prevent decompensation. Narrative Note: []
--- NOTE | 2021-09-28 12:03 | PCM.BH.PN ---
Progress Note Progress Note: And history of Present Illness/Interim History: [] The patient is a 46-year-old female with a history of depression, anxiety and alcohol use disorder who is seen in follow-up at the [facility] behavioral health intensive outpatient program. I last saw the patient 3 weeks ago and she states that she has found the IOP program to be very valuable to her and feels she has learned valuable skills since she started the program. She has become also increasingly aware of some of her dysfunctional core beliefs and this has taken some of the power away from them she feels. She still feels overwhelmed at times but she is less depressed and denies hopelessness or worthlessness. She denies passive thoughts of , suicidal ideation, plan for suicide, homicidal ideation, hallucinations, delusions. She has been consistent and engaged in treatment according to the [facility] staff. She has remained sober from all alcohol use since July 10, 2017 and sober for him from any substance use. Her panic attacks have greatly resolved also in the past several weeks. Current Psychiatric Medications: [] Trental X 10 mg p.o. daily (x1 month); Effexor XR 37.5 mg p.o. daily (being weaned); Lamictal 100 mg p.o. daily (x6 weeks but may be increased soon per patient). Mental Status Examination: [] The patient is a 46-year-old female who appears normal for stated age and is casually dressed and groomed with good hygiene. She has no psychomotor agitation or retardation. She is cooperative during the interview with good eye contact. Speech is normal rate and rhythm and fluent with no pressure. Mood is euthymic today. Affect is full and normal. Thought process is goal-directed and organized. Thought content: There is evidence of hopefulness for the future that she will be able to manage her mental health symptoms well. There is no evidence of passive thoughts of , suicidal ideation, plan for suicide, homicidal ideation, hallucinations, or delusions. Reality testing is intact. Judgment is intact. Insight: Good. Impulsivity: Moderate. Diagnoses: [] 1. Major depressive disorder, recurrent, severe without psychosis (resolving) 2. Social anxiety disorder 3. Alcohol use disorder in full remission since 2018 4. Rule out history of opiate/benzo use disorder 5. Primary support issues Plan: [] The patient will continue the IOP program at [facility] as the structure, support, education and group therapy will hopefully prevent worsening of the patient's symptoms which could require hospitalization. She felt safe during the interview and if it anytime she does not feel safe she will let us know or go to the emergency room. The risks, options, possible complications and side effects of the medications were again discussed with the patient and she understands and accepts these. No medication changes were made today. The patient understands the importance of staying sober from alcohol and all other substances. She will continue to follow-up with her outpatient providers and I will see the patient in follow-up while in the IOP program.
--- NOTE | 2021-09-28 13:00 | BH.MDN ---
Multi-Disciplinary Note - Note 60-min Individual Time Started:: 10:10 Date: 09/28/21 Purpose of session/treatment goals addressed:: Reviewed current progress and symptoms. Addressed treatment plan goals 1 and 2. Eye Contact:: Good Motor Activity:: Restless Appearance:: Casual Speech:: Pressured, Rapid Mood:: Anxious Affect:: Congruent Thoughts:: Linear, Logical, No evidence of hallucinations/delusions noted Staff Interventions:: thought challenging, psychoeducation on: - social skills,, CBT techniques Client Response:: Pt shared a few examples over the weekend of using skills to stay in the rutledge zone and avoid absolute thinking. She believes that she has increased awareness of when she is utilizing cognitive distortions with thought log which has helped decrease negative thinking. We briefly reviewed the results of her mistaken beliefs questionnaire which identified core mistaken beliefs as; believing she is powerless over outside circumstances, her self-worth is dependent on others' approval, self-worth dependent on external achievements, and the belief that she has to be perfect in many areas of her life. While discussing core beliefs a discussion was had on how these relate to oversharing and excessive talking which have impacted relationships. Oversharing is used to prove that she has value. Tearful. Oversharing and poor identification of social cues often pushes people away and leads pt to isolate. We reviewed very common cues to indicate someone is interested in ending a conversation and she states I never knew that ? Nobody has ever told me about those. Seeking connection and validation with oversharing however others viewing her as bragging, having no boundaries, dominating conversations, and annoying. She was open to setting some social goals to utilize in groups. Risks/Concerns:: no risks or concerns noted. Progress Toward Goals/Plan:: Tearful throughout the session. She has very rigid core beliefs which originated at an early age. These beliefs are impacting automatic thoughts and her emotions. Making progress through psychoeducation and thought log. We are also focusing on improving communication skills and social cues. Plan is to continue in IOP to prevent decompensation, maintain safety, and increased healthy coping. Time Stopped:: 11:00
--- NOTE | 2021-09-29 09:00 | BH.SGPN.GN ---
Behaviors/Verbalizations/Mental Status: [] Eye contact is good. Motor activity is appropriate. Appearance is casual. Speech is Appropriate. Mood is euthymic. Affect is full. Thoughts are linear and logical. No evidence of psychosis. Reviewed daily check in sheet and no reports of suicidal ideations or intent. Client Response/Progress/Benefit: [] Pt was an active participant in group discussions. Attentive. Provided appropriate feedback. Daily symptom tracker notes 04/16 for anxiety. Mental health win was I slept 10 hours last night ... I must have needed it. Shared how this was beneficial and not isolating or escaping. She discussed how she was able to be present with her family last evening. They cooked and ate dinner together which they have not done in a long time. 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 She utilize opposite-action and choose to engage and noted benefits to this. Her goal this weekend is to begin 15 minute projects. She reports being overwhelmed with projects before she starts which lead to inaction and avoidance. She is trying to set small SMART goals to begin to chip away at certain projects in her house. Progress noted per pt report. Benefited from group support, encouragement, and feedback. Will continue in IOP to prevent decompensation, stabilize mood, and increase functioning. Narrative Note: [] Behaviors/Verbalizations/Mental Status: [] Eye contact is good. Motor activity is appropriate. Appearance is casual. Speech is Appropriate. Mood is euthymic. Affect is full. Thoughts are linear and logical. No evidence of psychosis. Reviewed daily check in sheet and no reports of suicidal ideations or intent. Client Response/Progress/Benefit: [] Pt was an active participant in group discussions. Attentive. Provided appropriate feedback. Daily symptom tracker notes 04/16 for anxiety. Mental health win was I slept 10 hours last night ... I must have needed it. Shared how this was beneficial and not isolating or escaping. She discussed how she was able to be present with her family last evening. They cooked and ate dinner together which they have not done in a long time. 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 She utilize opposite-action and choose to engage and noted benefits to this. Her goal this weekend is to begin 15 minute projects. She reports being overwhelmed with projects before she starts which lead to inaction and avoidance. She is trying to set small SMART goals to begin to chip away at certain projects in her house. Progress noted per pt report. Benefited from group support, encouragement, and feedback. Will continue in IOP to prevent decompensation, stabilize mood, and increase functioning. Narrative Note: []
--- NOTE | 2021-09-29 10:10 | BH.SGPN.GN ---
Behaviors/Verbalizations/Mental Status: []Pt alert and oriented, casually dressed and grooming appears tended to. Eye contact good. Motor activity appropriate. Speech within normal limits. Affect congruent, mood euthymic. Thoughts linear, logical, no signs of hallucinations or delusions. Client Response/Progress/Benefit: []Pt engaged throughout AEB taking notes, listening attentively, and providing input throughout. Attentive during psychoeducation and discussed the importance of goal-setting with the group. Group identified potential benefits of having goals to include: they motivate, increase self-confidence, provide a sense of accomplishment, help improve relationships, and provide a sense of purpose. Group also worked together to identify barriers to goal-setting which included; all or nothing thinking, self-doubt, toxic environment, lack of motivation, and unrealistic expectations. Pt identified personal barriers to include unrealistic expectations and quitting due to all or nothing thinking. Benefited from increased awareness of benefits and barriers to goal-setting. Pt will continue in IOP to improve mood stability, reduce isolation, and improve daily functioning. Narrative Note: []
--- NOTE | 2021-09-29 11:10 | BH.SGPN.GN ---
Behaviors/Verbalizations/Mental Status: []Client alert and oriented, casually dressed and groomed. Eye contact good. Motor activity appropriate. Speech loud. Affect congruent, mood anxious. Thoughts linear, logical, no signs of hallucinations or delusions. At times rambling. Client Response/Progress/Benefit: []Pt was an active participant in group discussions and activities. Engaged in activity. Pt identified a SMART goal for the next week is to: spend 15 minutes everyday on cleaning specific areas of her house. Pt reported this would benefit her by decreasing her feelings of being overwhelmed when home and able to see progress with her mental health. Identified procrastination, low motivation, negative self-talk, frustration, and setbacks as potential barriers to completing this goal. Pt able to identify several solutions that can help overcome identified barriers. Benefited from group by being able to utilize SMART educate to create a goal. Pt to continue IOP to decrease distorted thoughts, increase confidence and prevent decompensation.
--- NOTE | 2021-09-30 08:39 | BH.MTP_ITS ---
Treatment Plan Review Date of Admission:: 09/02/21 Date of Treatment Plan Review:: 09/28/21 Admitting Diagnoses:: 1. Major depressive disorder, recurrent, severe without psychosis. 2. Social anxiety disorder. 3. Alcohol use disorder in full remission since 2018 Current Diagnoses:: 1. 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 2. Social anxiety disorder. 3. Alcohol use disorder in full remission since 2018 Patient's Response to Treatment:: Pt has shown consistent attendance while in IOP. When present she is engaged however struggles with oversharing and excessive talking. Also struggles with identifying social cues from peers. He feedback is on topic and she shows insight into topics discussed. Medication compliant. Status of Current Problems and Symptoms: According to pt IOP has been beneficial. She has found the IOP program to be very valuable to her and feels she has learned valuable skills since she started the program. She has become also increasingly aware of some of her dysfunctional core beliefs and this has taken some of the power away from them she feels. She still feels overwhelmed at times but she is less depressed and denies hopelessness or worthlessness. She denies passive thoughts of , suicidal ideation, plan for suicide, homicidal ideation, hallucinations, delusions. She has remained sober from all alcohol use since July 10, 2017 and sober from any substance use. Her panic attacks have greatly resolved also in the past several weeks. Despite self- report her outcomes scores have actually increased since IOP admission. Pt has shown 50% increase in overall symptoms since admission. Scores in the depression domain have increase 33% and scores in the anxiety domain have doubled. Scores in the anger domain have not changed. Problem #1 Problem Name:: Depression. Status of Goals:: Overall Goal- In progress (refer above). obj1- Has started thought log, can identify numerous cog. distortions however early in identifying strategies to challenge negative thoughts and cog. distortions. obj2- completed mistaken beliefs questionnaire. Has not reviewed with therapist and begun to challenge these beliefs. Team Recommendations:: Continue with current plan and IOP. Increase in outcomes may indicate minimizing current struggles in group and with professionals. Problem #2 Problem Name:: Anxiety Status of Goals:: Overall goal- in progress (refer above). Obj1- Pt is able to identify calming skills however struggles with consistently use these skills when in distress. Team Recommendations:: Continue with current plan and IOP.
--- NOTE | 2021-10-04 09:00 | BH.SGPN.GN ---
Behaviors/Verbalizations/Mental Status: [] Client alert and oriented, casually dressed and groomed. Eye contact good. Motor activity appropriate. Speech within normal limits. Affect congruent, mood euthymic, Thoughts linear, logical, no signs of hallucinations or delusions. Reviewed client?s symptom tracker, no risk for suicidal ideation, plan, or intent as of 10/04/21 Client Response/Progress/Benefit: [] Client responded well to group by attentively listening and sharing with group. Client shared helpful coping techniques that she utilizes with the group. Reported that her emotion of the day was slightly irritated. Client went on to say she feels this way because she has noticed positive advancements towards her mental health goals, which has caused her to care more. Client said that since she cares more about the way her house looks, it is causing irritation. Client said her mind space is overall positive and feels she is able to make more positive choices. Client seemed to benefit from feedback from group member and validation on current feelings. They will continue IOP tx to decrease depressive symptomatology, reduce irritability, and increase overall functioning. Narrative Note: []
--- NOTE | 2021-10-04 10:05 | BH.SGPN.GN ---
Behaviors/Verbalizations/Mental Status: []Client present via telehealth. Eye contact is good. Motor activity is appropriate. Appearance is casual and grooming tended to. Speech is Appropriate. Mood is euthymic. Affect is congruent. Thoughts are linear and logical. No evidence of psychosis Client Response/Progress/Benefit: [] Client receptive of session, actively engaged throughout AEB taking notes and providing input and examples to discussion. Appeared to connect with group topic of cognitive distortions and the impact of thought patterns on mental health, coping behaviors, and relationships. Reflected that she personally tends to struggle with distortions of all of nothing thinking and emotional reasoning. Client reported that there are times where she will feel worthless then truly believe it when she emotionally reasons. Client appeared to benefit from gaining insight on distorted thinking patterns and how this impacts overall mental health. Progress noted in client report of improved insight and ability to combat distortions with alternative positive thoughts. Will continue IOP tx to further improve mood stability, reduce anxiety and avoidance, and increase overall functioning. Narrative Note: []
--- NOTE | 2021-10-04 11:10 | BH.SGPN.GN ---
Behaviors/Verbalizations/Mental Status: [] Eye contact is good. Motor activity is appropriate. Appearance is casual and grooming tended to. Speech is Appropriate. Mood is euthymic. Affect is congruent. Thoughts are linear and logical. No evidence of psychosis Client Response/Progress/Benefit: [] Client responded well to session AEB input and examples during group activity. Group discussed and practiced methods of reframing cognitive distortions. Client participated in identifying cognitive distortions when examples were provided. Client discussed in group the different strategies to overcome the distortions by practicing reframing. Client identified that they see themselves being impacted by using all of the cognitive distortions and gave example of using personalization with seeing herself as a failure of success as a mom based off of decisions her daughter makes. Client made plan to identify and challenge thoughts that contribute to it as homework over the next couple of days. Will continue tx to further promote mood stability, decrease presenting anxiety, and prevent decompensation. Narrative Note: []
--- NOTE | 2021-10-05 09:05 | BH.SGPN.GN ---
Behaviors/Verbalizations/Mental Status: [] Eye contact is good. Motor activity is appropriate. Appearance is casual. Speech is pressured/rapid. Mood is anxious/irritable. Affect is congruent. Thoughts are linear and logical. No evidence of psychosis. Reviewed daily check in sheet and no reports of suicidal ideations or intent. Client Response/Progress/Benefit: [] Pt was an active participant in group discussion on mindfullness. Attentive. Provided appropriate feedback. Emotion for today is irritable. Daily symptom tracker notes 04/16 for anxiety and depression. Mental health wins include setting boundaries with a friend stating I was able to say no. Shared several examples of how she was challenging cognitive distortions. I wasn't worrying what others MIGHT be thinking about me. Reframed and challenging mind-reading thoughts and was able to make a decision to benefit herself instead of others. She talked extensively regarding a stressor involving storage of her craft supplies (which there are a lot). Currrently had to move them out of friend's storage and now they are in her living room which upsets her and may irritate others. I'm sitting with this which is uncomfortable which is a win however she must find a space for them. I'm not isolating in my room. Another stressor is that her elderly parents have COVID. Progress noted per pt report. Benefited from group support, encouragment, and feedback. Will continue in IOP to prevent decompensation, increase healthy coping, and improve functioning. Narrative Note: []
--- NOTE | 2021-10-05 10:15 | BH.SGPN.GN ---
Behaviors/Verbalizations/Mental Status: []Pt alert and oriented, casually dressed and groomed. Eye contact good. Motor activity appropriate. Speech rapid. Affect congruent, mood anxious and euthymic. Thoughts linear, logical, no signs of hallucinations or delusions. Client Response/Progress/Benefit: []Pt engaged during session AEB Pt contributing thoughts throughout discussion and completing worksheet. Connected with discussion on crisis and how coping with external crises by using unhealthy coping skills could result in a personal crisis. Group reflected on the importance of having awareness of personal warning signs to prevent reaching crisis point. Group identified potential warning signs for crisis and Pt completed the personal warning signs worksheet. Pt identified personal crisis warning signs to include: lack of self-care, negative thinking, and overusing distractions.?Pt benefited by increasing awareness of what leads to crisis and personal warning signs. Pt will continue IOP tx to further improve mood stability, increase self-confidence, and reduce negative thinking patterns.? Narrative Note: []
--- NOTE | 2021-10-05 11:10 | BH.SGPN.GN ---
Behaviors/Verbalizations/Mental Status: []Client alert and oriented, casually dressed and groomed. Eye contact good. Motor activity appropriate. Speech within normal limits. Affect congruent. Mood euthymic. Thoughts linear, logical, no signs of hallucinations or delusions. Client Response/Progress/Benefit: []Client responded well to session as evidenced by client listening attentively to others and providing strategies during discussion. Client identified her warning signs for crisis and gained further awareness of earliest warning signs. Client created a crisis action plan to help client better manage warning signs for crisis. Client?s action plan for overuse of distraction included: limit number of books read/listen to each week, limit time of listening to book and playing a game on her phone simultaneously, create time when listening to book while being productive, and find books to read that are informative. Client appeared to benefit from creating a crisis action plan and increasing self-awareness. Client to continue IOP tx to increase consistent use of healthy coping, challenge distorted thoughts and prevent decompensation.
--- NOTE | 2021-10-06 09:00 | BH.COMM ---
Communication Note - Communication with Client Communication Note: cancelled IOP today. Was scheduled to meet with indiv therapist.
== END 2021-10-09 23:59 ==
LOC: BHIOP 07:26
PROVIDERS: PCP Family Medicine; Referring Provider Psychiatry & Neurology Psychiatry; Visit Provider Psychiatry & Neurology Psychiatry
DX: F32.2 Major depressive disorder, single episode, severe without psychotic features (principal); F41.8 Other specified anxiety disorders; Z72.89 Other problems related to lifestyle; Z79.899 Other long term (current) drug therapy
CPT/HCPCS: S9480; 90834; 90837; 90853

== ENCOUNTER 2021-10-10 07:37 | Outpatient (RCR) | payer OTHER, SELFPAY ==
[2021-10-10 00:37] VITALS: BP 145/91; PULSE 73
--- NOTE | 2021-10-10 09:05 | BH.SGPN.GN ---
Behaviors/Verbalizations/Mental Status: []Pt alert and oriented, neatly dressed and groomed. Eye contact good. Motor activity restless. Speech tangential. Affect congruent to mood-tearful then constricted when agitated, mood dysthymic and irritable. Thoughts linear, logical, no signs of hallucinations or delusions. Reviewed pt?s symptom tracker, no risk for suicidal ideation, plan, or intent as of 10/10/21 Client Response/Progress/Benefit: []Pt responded somewhat well to session, reports being more agitated and irritable this morning. Pt shared the weekend was difficult and pt's mental health win today was getting to IOP. Pt shared she had a lot of all or nothing thinking over the weekend and almost quit the program because of her mindset. Pt reflected that she has made progress with not letting her all or nothing thinking control her. Pt continues to struggle with negative self-talk, emotional regulation, and communicating needs with supports. Pt will continue IOP tx to improve daily functioning, reduce negative thinking, and improve self-love. Narrative Note: []
--- NOTE | 2021-10-10 10:05 | BH.SGPN.GN ---
Behaviors/Verbalizations/Mental Status: [] Client alert and oriented, neatly dressed and groomed. Eye contact good. Motor activity appropriate. Speech within normal limits. Affect full, mood euthymic. Thoughts linear, logical, no signs of hallucinations or delusions. Client Response/Progress/Benefit: [] Client was an active participant in group discussions. Attentive during psychoeducation on 4 types of conflict styles (Competing, Collaborating, Avoiding, and Accommodating). Worked with group to define conflict and identify how conflict is helpful. With peers identified barriers to addressing or managing conflict which included: fear of upsetting others, fear of the outcome, and lack of confidence. Client believes he uses the avoiding style the most. Client shared experiences where she felt taken advantage of when using it. Benefited from group due to increase insight and awareness of benefits to conflict, conflict styles, and obstacles to managing conflict. Will continue in IOP to increase overall functioning, gain healthier core beliefs, and increase self-esteem. Narrative Note: []
--- NOTE | 2021-10-10 11:07 | BH.SGPN.GN ---
Behaviors/Verbalizations/Mental Status: [] Client alert and oriented, neatly dressed and groomed. Eye contact good. Motor activity appropriate. Speech within normal limits. Affect congruent, mood euthymic. Thoughts linear, logical, no signs of hallucinations or delusions. Client Response/Progress/Benefit: [] Client engaged in session AEB contributing to discussion and engaging in activity. Client did well to review current conflict style and its impact on mental health. Attentive during discussion on strategies for more effectively managing conflict in personal life. Client participated in activity and did well to be assertive and collaborating. Client given handout on fair fighting rules. Client identified that she is wanting to work on taking turns in face of conflict and try to hear the other person out more. Appeared to benefit from gaining strategies to help client better manage conflict. Will continue IOP tx to reduce negative thinking patterns, increase overall functioning, and utilize positive coping skills. Narrative Note: []
--- NOTE | 2021-10-11 09:05 | BH.SGPN.GN ---
Behaviors/Verbalizations/Mental Status: [] Eye contact is good. Motor activity is appropriate. Appearance is casual. Speech is pressured. Mood is euthymic. Affect is full. Thoughts are linear and logical. No evidence of psychosis. Reviewed daily check in sheet and no reports of suicidal ideations or intent. Client Response/Progress/Benefit: [] Pt was an active participant in group discussion. Attentive. Provided appropriate feedback. Daily symptom tracker notes 3/5 for depression and 2/5 for anxiety and irritability. Emotion for today is proud. Mental health win is I used conflict resolution skills yesterday. Briefly shared some struggles that her has been going through and how she was able to step up and be supportive to him. I didn't run and hide or isolate I was actually helpful. Insight on the progress she has made in the past several months. Implementing thought challenging and reframing skills. She continues to be stressed regarding craft supplies which she has mentioned often in group. Has had several plans however limited action to address this issue, however she continues to problem-solve. Benefited from group support, encouragement, and feedback. Will continue in IOP to prevent decompensation, stabilize mood, and improve functioning. Narrative Note: []
--- NOTE | 2021-10-11 10:10 | BH.SGPN.GN ---
Behaviors/Verbalizations/Mental Status: []Client alert and oriented, casually dressed and groomed. Eye contact good. Motor activity appropriate. Speech within normal limits. Affect full, mood euthymic. Thoughts linear, logical, no signs of hallucinations or delusions. Client Response/Progress/Benefit: []Client was an active participant AEB contributing to discussion, taking notes, and engaging in group activity. Connected with the topic of pitfalls and listened to group discussion on barriers that prevent from choosing a healthier path to mental wellness. Group worked together to identify examples of personal pitfalls which included; resentment/anger, stigma, shutting down, low motivation, making excuses, denial, distortions, and unhealthy coping. Client identified avoidance, devaluing self, and quitting as personal pitfalls that have inhibited progress in the past. Client benefited from group as she learned to better identify potential barriers to improving mental health symptoms. Client will continue IOP tx to increase healthy coping, improve confidence and prevent decompensation.
--- NOTE | 2021-10-11 11:03 | BH.MDN ---
Multi-Disciplinary Note - Note 45-min Individual Time Started:: 08:15 Date: 10/11/21 Purpose of session/treatment goals addressed:: Reviewed outcome measurement and discussed 3 week treatment plan review. Addressed all treatment plan goals. Eye Contact:: Good Motor Activity:: Appropriate Appearance:: Casual Speech:: Pressured, Rapid Mood:: Anxious, Depressed Affect:: Labile Thoughts:: Linear, Logical, No evidence of hallucinations/delusions noted Staff Interventions:: thought challenging, CBT techniques, discharge planning, reviewed DSM-5 Client Response:: Pt was very focused today on interactions yesterday and over the weekend with her so a majority of the session was spent on processing these stressors. Reports that she has been titrating off her Effexor and this past weekend I was completely off which she believes led to her emotions feeling more intense. Talked at length regarding her 's recent struggles with depression, negative thoughts, and over compulsive behaviors. Shared her beliefs on how this is impacting him and ultimately her mental health. She is proud of herself for stepping up and not avoiding or escaping these stressors through isolation, avoidance, or sleep. She continues to increase her awareness of cognitive distortions and is actually reframing, challenging, and inserting more realistic affirmations which has been helpful. Admits that she was very overwhelmed over the weekend with increased depression, isolation, and crying spells however implemented strategies to stop her depression from going on for several more days. Tearful at times. She has been discussing distress related to storage of her crafts for the past several weeks. This stressor is very significant for her and coming up with a solution has been very challenging. Therapist helped with problem- solving and pointed out cognitive distortion, helped with reframing, and encouraged self/care and coping skills. Risks/Concerns:: no risks or concerns noted. Progress Toward Goals/Plan:: Progress noted per pt report. She continues to use thought record and has increased her awareness of cognitive distortions and negative thoughts. She also is moving in the taking action phase and is challenging, reframing, and addressing negative automatic thoughts. Also reports increased communication skills with I'm trying really hard to listen to what he is saying . Admits that in the past when he was talking she was focused on what I was going to say in response. Refer to treatment plan review for more information on outcomes progress. Medication compliant. She is prepared for IOP discharge and has several upcoming appointments with her outpatients counselor and home extension agent scheduled. Plan is to continue in IOP. We did not have time today to review and begin to work on challenging core mistaken beliefs, prevent decompensation, and improve functioning. Time Stopped:: 09:00
--- NOTE | 2021-10-11 11:15 | BH.SGPN.GN ---
Behaviors/Verbalizations/Mental Status: []Pt alert and oriented, neatly dressed and groomed. Eye contact good. Motor activity restless. Speech within normal limits. Affect congruent to mood-tearful and exasperated, mood irritable and overwhelmed. Thoughts linear, logical, no signs of hallucinations or delusions Client Response/Progress/Benefit: []Pt receptive of session, engaged throughout AEB pt actively listening and contributing to discussion, as well as taking notes.? Pt participated in the experiential activity and became highly irritated and anxious which resulted in pt having to step out for a bit to calm down. When pt returned, she declined to participate in the activity. Pt and group processed how the emotions and perspective of the group impacted the activity. Group worked together to identify different coping skills to help manage pitfalls. Pt identified pitfalls they struggle with and shared wanting to work on writing down her emotions and processing them on paper. Benefited from identifying personal pitfalls and strategies to overcome these pitfalls. Pt continues to struggle with emotional regulation skills, especially when pt is not in control of the situation. Will continue IOP tx to increase distress tolerance skills, improve emotional regulation, and reduce negative thinking patterns. Narrative Note: []
--- NOTE | 2021-10-13 09:10 | BH.SGPN.GN ---
Behaviors/Verbalizations/Mental Status: []Pt alert and oriented, casually dressed and groomed. Eye contact good. Motor activity appropriate. Speech tangential. Affect congruent, mood hyper. Thoughts linear, logical, no signs of hallucinations or delusions. Reviewed pt?s symptom tracker, no risk for suicidal ideation, plan, or intent as of 10/13/21 Client Response/Progress/Benefit: []Pt responded well to session, interrupting peers at times, but engaged. Pt reports feeling hyper and kind of manic this morning. Pt shared she was late today as pt got out of the house and went to [facility] which pt would not have been able to do a month ago. Pt also reported that she and her came up with a plan for pt's crafts which is giving pt some motivation to organize things. Pt is both looking forward to and anxious about getting her crafts organized. Pt appeared to benefit from challenging distortions in the moment. Pt will continue IOP tx to increase distress tolerance skills, improve communication skills, and improve motivation. Narrative Note: []
--- NOTE | 2021-10-13 10:10 | BH.SGPN.GN ---
Behaviors/Verbalizations/Mental Status: [] Eye contact is good. Motor activity is appropriate. Appearance is casual. Speech is pressured. Mood is euthymic. Affect is full. Thoughts are linear and logical. No evidence of psychosis. Client Response/Progress/Benefit: [] Pt was an active participant in group discussions and activity. Attentive during psychoeducation. Pt along with peers were able to identify several negatives on the picture given to the group. Pt and peers also identified positives in the picture, however overall found less positives than negatives. Interactive discussion on the definition of perspective, how perspective is formed, and why perspective is important. Pt along with peers also identified that perspective can be impacted by; emotions, past experiences, mental health illness, upbringing, physical health, and age. Increased awareness on the connections between perspective and mental health. Will continue in IOP to prevent decompensation, increase healthy coping, improve functioning, and stabilize mood. Narrative Note: []
--- NOTE | 2021-10-13 11:10 | BH.SGPN.GN ---
Behaviors/Verbalizations/Mental Status: []Pt alert and oriented, casually dressed and groomed. Eye contact good. Motor activity appropriate. Speech tangential, interrupting. Affect congruent, mood euthymic. Thoughts linear, logical, no signs of hallucinations or delusions. Client Response/Progress/Benefit: []Pt was attentive and contributed in small and larger group discussion. Pt completed strengths exploration worksheet and identified personal strengths to include: creativity, spirituality, empathy, and humor. Pt shared that working to recognize these personal strengths more consistently will help improve pt?s mood and increase self-worth. Shared wanting to focus on fostering personal strengths by setting a reminder on her phone and habit stacking. Benefited from identifying personal strengths and strategies for enhancing use of identified strengths. Pt to continue PHP tx to prevent decompensation, gain healthy coping skills to manage mood and anxiety, and reduce impulsivity.?? Narrative Note: []
--- NOTE | 2021-10-17 09:00 | BH.SGPN.GN ---
Behaviors/Verbalizations/Mental Status: [] Eye contact is good. Motor activity is appropriate. Appearance is casual. Speech is Appropriate. Mood is anxious. Affect is congruent. Thoughts are linear and logical. No evidence of psychosis. Reviewed daily check in sheet and no reports of suicidal ideations or intent. Client Response/Progress/Benefit: [] Pt was an active participant in group discussions. Attentive. Provided appropriate feedback. Emotion for today is anxious. Daily symptom tracker notes 4/5 for irritability. 3/5 for anxiety and 2/5 for depression. Reports some decrease in functioning over the weekend which she attributes to adjusting to being off Effexor. Mental health wins included managing my emotions better than last weekend. Shared several examples over the weekend of identify and reframing cognitive distortions. She also shared examples of utilizing anger mgmt skills as well. He stressor is reported to be mood intensity since stopping her Effexor but I'm hoping that we can figure this out. She prefers to work with her outpatient psychiatrist on this issue rather than program psychiatrist. Progress noted per pt report. Benefited from group support, encouragement, and feedback. Will continue in IOP to maintain gains, prevent decompensation, and stabilize mood. Narrative Note: []
--- NOTE | 2021-10-17 10:10 | BH.SGPN.GN ---
Behaviors/Verbalizations/Mental Status: [] Client alert and oriented, neatly dressed and groomed. Eye contact good. Motor activity appropriate. Speech normal. Affect congruent, mood euthymic, Thoughts linear, logical, no signs of hallucinations or delusions. Client Response/Progress/Benefit: [] Client was an engaged participant AEB provided consistent input. Attentive during psychoeducation on communication styles. Assisted group with identifying barriers of effective communication which included: ?being put down, cognitive distortions, and mood. Client identified they most often use passive communication. Client reports that she spent a lot of her life feeling like she got walked all over and now is trying to be more assertive. Client stated she has been doing better with using direct communication since starting IOP. Benefited from increased awareness of different communication barriers, styles, and the importance of communicating effectively to improve mental wellness. Will continue IOP tx to improve emotional regulation skills, utilization of coping skills, and improve daily functioning with expected discharge date this week. Narrative Note: []
--- NOTE | 2021-10-19 09:00 | BH.SGPN.GN ---
Behaviors/Verbalizations/Mental Status: []Pt alert and oriented, casually dressed and appropriately groomed. Eye contact good. Motor activity appropriate. Speech WNL. Affect congruent, mood anxious. Thoughts linear, logical, no signs of hallucinations or delusions. Reviewed pt?s symptom tracker, no risk for suicidal ideation, plan, or intent. Client Response/Progress/Benefit: [] Client respond well to session as evidenced by listening attentively to others and sharing thoughts and feelings. Client reported a mental positive as trying to live in the [place] because she realizes all or nothing thinking tends to lead to self sabotage and inaction. Client reported she was able to get one of her projects complete in the bathroom and has been attempting to challenge negative thoughts that she did not do more. Client for additional mental positive as spending quality time with her by going out to eat and going to the movies. Client stated continued stressor is no organization of her craft supplies. Client stated she has 7 large bins of craft supplies but no space to store all the craft stuff which leads to increased stress and avoidance. Jl noted with client reporting improved ability to challenge thought patterns. Continues to struggle with follow-through especially connected to her craft supplies. Client to continue IOP to increase follow-through of goals, improve self-esteem, and prevent decompensation. Narrative Note: []
--- NOTE | 2021-10-19 10:08 | BH.SGPN.GN ---
Behaviors/Verbalizations/Mental Status: []Pt alert and oriented, casually dressed and groomed. Eye contact good. Motor activity appropriate. Speech within normal limits. Affect congruent, mood euthymic. Thoughts linear, logical, no signs of hallucinations or delusions Client Response/Progress/Benefit: []Pt responded well to session AEB listening to peers and providing feedback to the discussion. Pt contributed?throughout group discussion defining fixed mindset and what it can look like. Group discussed how fixed mindset affects mental health and why we use fixed thoughts. Pt participated in experiential activity encouraging pts to find solutions to a seemingly impossible task. Pt identified personal fixed thoughts in session which included ?I have to be perfect at crafting to sell things and if I?m not perfect why bother.? Pt gained awareness that these thoughts reinforce lack of motivation and procrastination.?Pt appeared to benefit from increased knowledge of fixed mindset and self-awareness of personal fixed thoughts. Will continue IOP tx to reinforce the use of healthy coping skills, further decrease isolation and avoidance, and improve self-compassion.? Narrative Note: []
--- NOTE | 2021-10-19 11:10 | BH.SGPN.GN ---
Behaviors/Verbalizations/Mental Status: [] Eye contact is good. Motor activity is appropriate. Appearance is casual. Speech is Appropriate. Mood is anxious. Affect is congruent. Thoughts are linear and logical. No evidence of psychosis. Client Response/Progress/Benefit: [] Pt was an active participant in group discussion. Participated in their small group and was attentive during group psychoeducation on growth mindset vs fixed mindset. Pt and peers identified and shared examples of growth mindset which included; things can change, situations can improve, feedback whether positive or negative can be helpful, etc. Pt participated in interactive discussion and practiced changing a fixed mindset thought to a growth mindset thought. Benefited from increased awareness and insight of growth mindset and strategies to change from fixed mindset thoughts to growth mindset thoughts. Plan to continue in IOP to prevent decompensation, increase healthy coping strategies, and improve functioning. Narrative Note: []
--- NOTE | 2021-10-20 09:00 | BH.SGPN.GN ---
Behaviors/Verbalizations/Mental Status: [] Eye contact is good. Motor activity is appropriate. Appearance is casual. Speech is Appropriate. Mood is euthymic. Affect is full. Thoughts are linear and logical. No evidence of psychosis. Reviewed daily check in sheet and no reports of suicidal ideations or intent. Client Response/Progress/Benefit: [] Pt was an active participant in group discussion. Attentive. Provided appropriate feedback. Daily symptom tracker notes 03/16 for depression/anxiety. Emotion for today is doing well. [facility] is doing hair and make-up this morning. Shared that she is sitting with the uncomfortable as she dressed up this AM. Briefly discussed how sitting with the uncomfortable is benefiting her mental health. She is also practicing her patience and listening skills this AM as she is actively attempting to not talk over others and be overbearing. More aware of how she is communicating with support yesterday which was helpful. She continues to identify cognitive distortions that she frequently use and is taking action and implementing thought reframing skills. Progress noted per pt report. Benefited from group suppor, encouragement, and feedback. Will continue in IOP to maintain gains and prevent decompensation. Narrative Note: []
--- NOTE | 2021-10-20 10:10 | BH.SGPN.GN ---
Behaviors/Verbalizations/Mental Status: []Client alert and oriented, neatly dress, hygiene tended to. Eye contact good. Motor activity appropriate. Speech within normal limits. Affect full. mood euthymic, positive. Thoughts linear, logical, no signs of hallucinations or delusions. Client Response/Progress/Benefit: []Pt responded well to session AEB providing contributions at times during discussion and appeared to listen attentively to others. Pt appeared to connect well with the topic of resilience AEB nodding when others mentioned being flexible with change will help you move forward in life. Pt worked with the group during discussion of the costs of resisting change and the benefits of adapting to adversity. Attentive during psychoeducation on various mcnair factors in developing personal resilience. Pt worked in small group helping with identifying benefits of each factor in fostering resilience. Pt stated she struggles most with the resilience factor of nurturing a positive view of self and maintaining a hopeful outlook. Pt seemed to benefit from increasing awareness of strategies to increase personal resilience and the impacts of resilience on managing mental health sx. Will continue IOP tx to continue use of healthy coping skills, improve view of self and prevent decompensation. Narrative Note: []
--- NOTE | 2021-10-20 11:10 | BH.SGPN.GN ---
Behaviors/Verbalizations/Mental Status: []Client alert and oriented, casually dressed and groomed. Eye contact good. Motor activity appropriate. Speech within normal. Affect full. Mood Euthymic. Thoughts linear, logical, no signs of hallucinations or delusions. Client Response/Progress/Benefit: []Client engaged participant as evidenced by client engaged in activity, providing contributions to discussion and appeared to listen attentively to others. Client engaged in group activity. Able to connect how the group utilized the 10 resiliency components to be successful in challenge activity. Client stated she would like to strengthen resiliency component of nurture positive view of self. Client stated she will write down at least once accomplishment from each day. Client appeared to benefit from increasing insight to ways in which client can improve resilience to adversity and daily stressors. Client to continue IOP tx to continue use of healthy coping skills, increase confidence and prevent decompensation.
--- NOTE | 2021-10-20 13:55 | BH.MDN_ITS ---
Multi-Disciplinary Note - Note 45-min Individual Time Started:: 12:05 Date: 10/20/21 Purpose of session/treatment goals addressed:: Reviewed progress and current symptoms. Discussed discharge from [facility]. Focused on treatment plan goal 2. Eye Contact:: Good Motor Activity:: Appropriate Appearance:: Neat Speech:: Appropriate Mood:: Euthymic Affect:: Full Thoughts:: Linear, Logical, No evidence of hallucinations/delusions noted Staff Interventions:: mindfulness skills, discharge planning, taught coping skills Client Response:: Pt presents today in good spirits I'm living in the uncomfortable today. She dressed up today and reports taking action and being motivated to make changes. Trying to implement listening and social skills today in group, rather than excessive talking. We reviewed treatment plan goals today and focused on objective client will learn and implement 2-3 calming skills to reduce overall anxiety and manage anxiety. Since she has been in the program for several weeks therapist followed up with her regarding progress. She is able to identify several calming skills however struggles on implementing these skills effectively. We reviewed her skills which included, 5 senses, breathing, reframing, challenging, and earthing. We discussed utilizing skills throughout the day to manage anxiety rather than only when anxious incorporating an prevention model for her anxiety. She was receptive to this. She is also planning in creating one positive affirmation in the morning and then reviewing one accomplishment at night before bed as another way to manage and highlight wins. She is agreed that she has moved from awareness to taking action in her treatment and has noticed progress in [facility] level of care. Risks/Concerns:: no risks or concerns noted. Progress Toward Goals/Plan:: Plan is to discharge pt next week from [facility] level of care as she reports progress on moderate stability in the past few weeks. Has meet most treatment plan goals. Aftercare plan is arranged. She meets weekly with outpatient counseling (Emi Torres) and has monthly appointment with PA who is managing her medications. She is also agreeable to begin [facility] Aftercare group which meets once weekly for 1.5 hours for 8 weeks. Time Stopped:: 12:45
--- NOTE | 2021-10-25 09:05 | BH.SGPN.GN ---
Behaviors/Verbalizations/Mental Status: [] Eye contact is good. Motor activity is appropriate. Appearance is casual. Speech is Appropriate. Mood is euthymic. Affect is full. Thoughts are linear and logical. No evidence of psychosis. Reviewed daily check in sheet and no reports of suicidal ideations or intent. Client Response/Progress/Benefit: [] Pt was an active participant in group discussion. Provided appropriate feedback. Attentive. Daily symptom tracker notes 1/5 for depression/anxiety and 2/5 for irritability. Emotion for today is encouraged. Mental health win is that she cooked dinner 2 days in a row. She has not done this in over 6 months. Elaborating on why this was a mental health win. Spending more quality time with her daughter as well. Completing tasks. Implementing coping skills, reframing, and thought challenging ans is seeing the benefits. Also reports that she is sleeping better. Stressor continues to be related to medication titration which she has discussed before. Progress noted. Benefited from group support, encouragement, and feedback. Will continue in IOP to maintain gains. Narrative Note: []
--- NOTE | 2021-10-25 10:15 | BH.SGPN.GN ---
Behaviors/Verbalizations/Mental Status: [] Client alert and oriented, casually dressed and groomed. Eye contact good. Motor activity appropriate. Speech within normal limits. Affect congruent, mood euthymic. Thoughts linear, logical, no signs of hallucinations or delusions. Client Response/Progress/Benefit: [] Client responded well to session AEB sharing and listening attentively to others. Group provided examples of benefits of having social support, including: validation, increased confidence, and better mental health. Client also participated in group discussion regarding the barriers to accessing support including personal example of not setting boundaries with existing supports. Client participated in experiential activity illustrating the impact communication, boundaries, and patience play in creating healthy support systems. Client appeared to benefit from increased knowledge of the benefits of social support and greater self-awareness. Will continue IOP tx with expected discharge date this week to utilize healthy coping, minimize negative distortions, and improve overall functioning. Narrative Note: []
--- NOTE | 2021-10-25 11:15 | BH.SGPN.GN ---
Behaviors/Verbalizations/Mental Status: [] Client alert and oriented, casually dressed and groomed. Eye contact good. Motor activity appropriate. Speech within normal limits. Affect congruent, mood euthymic. Thoughts linear, logical, no signs of hallucinations or delusions. Client Response/Progress/Benefit: [] Client was an active participant throughout AEB contributing to discussion, providing personal examples, and taking notes. Client processed emotions felt in the activity and how they coped in the moment. Client provided input during discussion on the types of support our supports can provide. Client able to identify current support system and barriers that get in the way of using supports by drawing out their own support net. Client reported after identifying what type of supports she receives, she gained awareness that she could benefit from more social supports. Client identified steps to achieve this by joinng groups with similar interests and create specific short term and group home goals. Client shared increasing social supports will help her keep motivated. Client seemed to benefit from identifying the type of support client needs to work on improving. Client recommended to continue IOP tx with expected discharge dennis this week to prevent decompensation, increase healthy communication, and increase overall functioning. Narrative Note: []
--- NOTE | 2021-10-27 09:05 | BH.SGPN.GN ---
Behaviors/Verbalizations/Mental Status: [] Eye contact is good. Motor activity is appropriate. Appearance is casual. Speech is Appropriate. Mood is euthymic. Affect is full. Thoughts are linear and logical. No evidence of psychosis. Reviewed daily check in sheet and no reports of suicidal ideations or intent. Client Response/Progress/Benefit: [] Pt was an active participant in group discussion. Attentive. Shared with the group that today is her last day in [facility]. She is scheduled to discharge successfully today from the program. Mental health wins include I didn't avoid or distract. She reports that she has been more mindful in the past week. She shared several examples of ways that she has been present with her support and how this has benefited her relationship with them. Typically she is constantly distracted either by coloring, listening to audiobooks, etc. Increased confidence in managing her thoughts, emotions, and behaviors so that she does not need to be distracted. When asked a group or topic that resonated the most with her she reported cognitive distortions and boundary setting. Progress noted per pt report. Will be discharged successfully today. Narrative Note: []
--- NOTE | 2021-10-27 11:15 | BH.SGPN.GN ---
Behaviors/Verbalizations/Mental Status: []Pt alert and oriented, neatly dressed and groomed. Eye contact good. Motor activity appropriate. Speech within normal limits. Affect congruent, mood euthymic. Thoughts linear, logical, no signs of hallucinations or delusions. Client Response/Progress/Benefit: []Pt responded somewhat well to session, engaged in the experiential activity but appeared to struggle with memory and self-doubt. 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 Pt completed fear of failure worksheet and was able to identify thoughts and behaviors that reinforce personal fear of failure including all or nothing thinking and expectations, negative self-talk, and avoidance. Pt participated in small group discussion regarding strategies to overcome fear of failure. Identified wanting to work on continuing to relocate her craft supplies and focus on making gifts for others to overcome fear of failure. Appeared to benefit from increased knowledge of strategies to combat fear of failure and gaining self-awareness. Pt will discharge from IOP tx today as pt has accomplished her tx goals and no longer meets criteria for IOP level of care. Narrative Note: []
--- NOTE | 2021-10-27 13:56 | BH.DS ---
Discharge Summary - Demographics Date of Admission:: 09/02/21 Discharge Date: 10/27/21 Presenting Problems at Admission:: Pt is a 46 y/o female with hx of MDD. No previous psychiatric admissions. Referred by a friend to [facility] level of care due to depression and severe isolation. Pt reports decompensation for since 12/2020. Was receiving Ketamine infusions for the past two years however change in insurance resulted in Ketamine not being covered in 12/2020. Endorses poor sleep, low energy, low motivation, isolation, no pleasure in activities, erratic moods and hopelessness. Pt reported prior to admission that she was only leaving the house to work (which is minimal). While at home she would isolate to her room away from and children (16,17). Isolation and mental health were interfering with familial, social and work responsibilities. Was not completing ADLs and normal day to day responsibilities due to mental health. Denies active SI, plan, or intent. Previous suicidal attempt in 2007 in which she overdosed on Wellbutrin. Endorses passive thoughts of family would be better off without me ? I create more problems than I'm worthy. Panic attacks 2-3 times monthly. Feels overwhelmed. Denies HI or psychosis. No family hx of mental illness. Just prior to starting IOP she was started on a medication which she reported to be beneficial which improved mood and decreased isolative behaviors. Despite improvement she continues to isolate at times and report overwhelming depression and anxiety. Discharge Diagnoses:: 1. 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 2. Social anxiety disorder. 3. Alcohol use disorder in full remission since 2018. 4. Rule out history of opiate/benzo use disorder Reason for Discharge:: No longer meets criteria for [facility] level of care. Sufficiently completed treatment plans goals - Treatment Progress During Treatment & Response: Significant progress noted. According to DSM-5 outcomes pt had an overall 44% reduction since 3 week measurement. Pt had a 50% reduction in the depression, anxiety, and anger domain. Pt also had improvement in the personality functioning domain. Pt responded well to IOP and was consistent and engaged. Pt showed a significant spike is symptoms around the 3-4 week levi of IOP (refer to treatment plan review) which was related to a mixture of titrating off Effexor and family stressors. Concern for decompensation at the time therefore continued in IOP to prevent decompensation, provide support, and increase healthy coping. In the past 2 weeks pt has shown significant progress. No longer isolating, denies any SI, and self-reports decreased anxiety and depression. Increased awareness of cognitive distortions and implementing thought reframing/challenging on consistent basis. Reports improved relationship and communication with family. Increased confidence in her ability to manage triggers, stressors, and emotional dysregulation. Issues Still to be Addressed:: Depression, anxiety, communication, negative automatic thoughts, Discharge Recommendations/Instructions:: Appt with MARCK Chapa for medication mgmt on 10/31/21. Appt with VIVEK Sam for counseling on 11/08/21. Plans to attend aftercare program here at [facility] starting on 11/02/21 Discharge Handout: Complete Discharge Handout with client on aftercare options and continuity of care.
--- NOTE | 2021-10-27 14:15 | BH.MDN ---
Multi-Disciplinary Note - Note 60-min Individual Time Started:: 10:15 Date: 10/27/21 Eye Contact:: Good Appearance:: Neat Speech:: Appropriate Mood:: Euthymic Affect:: Full Thoughts:: Linear, Logical, No evidence of hallucinations/delusions noted Staff Interventions:: discharge planning, reviewed DSM-5 Client Response:: Pt presents today in good spirits. Shared that she was triggered this AM and was proud of herself for how she managed her thoughts, emotions, and behaviors. Implemented skills effectively. States I would have been a disaster all day before this program. Increased confidence in her ability to manage distress, stress, and negative thoughts. We reviewed her DSM-5 outcome scores as this is her last day in IOP which show significant reduction from 3 week scores. Self-reports improvement in anxiety, depression, anger, and overall functioning. No longer isolating for days at a time. More engaged with her family/support. Risks/Concerns:: no risks or concerns noted. Progress Toward Goals/Plan:: Significant progress noted. According to DSM-5 outcomes pt had an overall 44% reduction since 3 week measurement. Pt had a 50% reduction in the depression, anxiety, and anger domain. Pt also had improvement in the personality functioning domain. Pt responded well to IOP and was consistent and engaged. Pt showed a significant spike is symptoms around the 3-4 week levi of IOP (refer to treatment plan review) which was related to a mixture of titrating off Effexor and family stressors. Concern for decompensation at the time therefore continued in IOP to prevent decompensation, provide support, and increase healthy coping. In the past 2 weeks pt has shown significant progress. No longer isolating, denies any SI, and self-reports decreased anxiety and depression. Increased awareness of cognitive distortions and implementing thought reframing/challenging on consistent basis. Reports improved relationship and communication with family. Increased confidence in her ability to manage triggers, stressors, and emotional dysregulation. Time Stopped:: 11:10
== END 2021-10-27 13:28 | disposition home or self-care (01) ==
LOC: BHIOP 07:37
PROVIDERS: PCP Family Medicine; Referring Provider Psychiatry & Neurology Psychiatry; Visit Provider Psychiatry & Neurology Psychiatry
DX: F33.2 Major depressive disorder, recurrent severe without psychotic features (principal); F41.8 Other specified anxiety disorders; F15.99 Other stimulant use, unspecified with unspecified stimulant-induced disorder
CPT/HCPCS: S9480; 90834; 90837; 90853

== ENCOUNTER 2021-11-03 12:00 | Outpatient (RCR) | payer OTHER, SELFPAY ==
--- NOTE | 2021-11-03 14:00 | BH.COMM ---
Communication Note - Communication with Client Communication Note: Pt presented to start weekly aftercare program. Recently completed IOP level of care. Consulted with Dr. Vaughn with plan to admit to aftercare with dx of F33.2
--- NOTE | 2021-11-03 14:00 | BH.SGPN.GN ---
Behaviors/Verbalizations/Mental Status: []Pt alert and oriented, casually dressed. Eye contact good. Motor activity appropriate. Speech within normal limits. Affect congruent, mood euthymic. Thoughts linear, logical, no signs of hallucinations or delusions. Client Response/Progress/Benefit: []Pt responded well to session, engaged and providing emotional support. Pt checked in using aftercare worksheet and pt reports she did not have an appointment with her therapist this week, but pt had a psychiatry appointment and pt has been taking her medications. Pt has been using coping skills such as thought challenging and reminding herself to live in the [place]. Pt participated in the discussion of self-love and how one can increase this. Pt reported it is challenging to have self-love when you expect perfection from yourself, but this is something pt continues to work on challenging. Pt selected strategies to improve self-love and shared this week pt is going to focus on giving herself permission to craft with items that are laying around knowing the craft may not be perfect. Pt appeared to benefit from increasing skills to build self-love. Pt will continue IOP aftercare to further increase mood stability and promote gains made in IOP. Narrative Note: [] Behaviors/Verbalizations/Mental Status: []Pt alert and oriented, casually dressed. Eye contact good. Motor activity appropriate. Speech within normal limits. Affect congruent, mood euthymic. Thoughts linear, logical, no signs of hallucinations or delusions. Client Response/Progress/Benefit: []Pt responded well to session, engaged and providing emotional support. Pt checked in using aftercare worksheet and pt reports she did not have an appointment with her therapist this week, but pt had a psychiatry appointment and pt has been taking her medications. Pt has been using coping skills such as thought challenging and reminding herself to live in the [place]. Pt participated in the discussion of self-love and how one can increase this. Pt reported it is challenging to have self-love when you expect perfection from yourself, but this is something pt continues to work on challenging. Pt selected strategies to improve self-love and shared this week pt is going to focus on giving herself permission to craft with items that are laying around knowing the craft may not be perfect. Pt appeared to benefit from increasing skills to build self-love. Pt will continue IOP aftercare to further increase mood stability and promote gains made in IOP. Narrative Note: []
--- NOTE | 2021-11-03 14:29 | BH.MTP ---
Master Treatment Plan - Patient Information Program Physician:: Dr. Rosa Vaughn Primary Therapist:: HAYLEE Storey - Psychiatric Diagnoses Psychiatric Diagnoses:: 1. 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 2. Social anxiety disorder. 3. Alcohol use disorder in full remission since 2018. 4. Rule out history of opiate/benzo use disorder Diagnosis Code(s):: F 33.1 - Estimated LOS Estimated LOS (in weeks):: 8 Problem/Goal #1 - Problem/Goal #1 Stated Goal:: client will maintain or see a reduction in symptoms AEB client score on the DSM 5 cross-cutting measure and improve client's daily functioning. - Objectives Objective #1 Stated Objective: Client will continue to consistently apply healthy coping skills to maintain progress made in IOP tx. Interventions: Through group therapy, client will review warning signs and triggers as well as healthy coping skills learned in IOP tx to successfully maintain gains while transitioning into outpatient therapy. Discharge Criteria: Client will have accomplished this goal when client's score on the DSM-5 cross-cutting measure has either maintained or reduced over an 8 week period. Target Date: 12/29/21 Review Date: 11/24/21 Objective #2 Stated Objective: Client will learn and utilize 2-3 maintenance strategies to prevent decompensation. Interventions: Through group therapy, client will be provided with education on healthy maintenance behaviors, relapse prevention techniques, and healthy coping strategies. Discharge Criteria: Client will have accomplished this goal when can report using at least 2 maintenance skills to prevent decompensation. Target Date: 12/29/21 Review Date: 11/24/21
== END 2021-11-09 23:59 ==
LOC: BHOG 12:00
PROVIDERS: PCP Family Medicine; Referring Provider Psychiatry & Neurology Psychiatry; Visit Provider Psychiatry & Neurology Psychiatry
DX: F33.2 Major depressive disorder, recurrent severe without psychotic features (principal)
CPT/HCPCS: 90853

== ENCOUNTER → 2021-11-07 | Outpatient (CLI) | payer OTHER, SELFPAY ==
[2021-11-07 17:58] LABS: Hematocrit 40.5 % (37-47); Hemoglobin 12.8 g/dL (12.0-15.0); Mean Corp Hgb Conc 31.6 g/dL (32-36); Mean Corpuscular Hgb 27.1 pg (27.0-32.0); Mean Corpuscular Volume 85.6 fL (81-99); Platelet Count 241 K/mm3 (150-450); RBC Distribution Width CV 13.5 % (11.6-14.6); RBC Distribution Width SD 42.1 fl (35.1-43.9); Red Blood Count 4.73 M/mm3 (4.2-5.4); White Blood Count 4.6 K/mm3 (4.4-11.0)
[2021-11-07 18:27] LABS: AST(SGOT) 25 U/L (15-37); Alanine Aminotransfer ALT/SGPT 32 U/L (13-56); Albumin, Serum 3.6 g/dL (3.2-5.0); Alkaline Phosphatase 74 U/L (45-117); Anion Gap 8 (5-15); BUN 18 mg/dL (7-18); BUN/Creat Ratio 15.7 RATIO (10-20); Calcium,Total 8.7 mg/dL (8.5-10.1); Chloride 107 mmol/L (98-107); Creatinine, Serum 1.15 mg/dL (0.55-1.02); EST Glomerular Filtration Rate 54 mL/min (>60); Est Glom Filt Rate - Afr Amer 65 mL/min (>60); Globulin 3.7 g/dL (2.2-4.2); Glucose 70 mg/dL (74-106); Potassium 3.9 mmol/L (3.5-5.1); Protein, Total 7.3 g/dL (6.4-8.2); Sodium Level 141 mmol/L (136-145); Thyroid Stim Hormone (TSH) 2.37 uIU/mL (0.358-3.74)
== END | disposition home or self-care (01) ==
LOC: MFPLAB 14:21
PROVIDERS: PCP Family Medicine; Visit Provider Family Medicine
DX: K21.9 Gastro-esophageal reflux disease without esophagitis (principal); F32.A Depression, unspecified
CPT/HCPCS: 36415; 80053; 82306; 84443; 85027

== ENCOUNTER 2021-11-10 07:40 | Outpatient (RCR) | payer OTHER, SELFPAY ==
--- NOTE | 2021-11-24 14:00 | BH.SGPN.GN ---
Behaviors/Verbalizations/Mental Status: []Pt alert and oriented, neatly dressed and groomed. Eye contact good. Motor activity appropriate. Speech within normal limits. Affect constricted, mood euthymic. Thoughts linear, logical, no signs of hallucinations or delusions. Client Response/Progress/Benefit: []Pt responded well to session, completed weekly check-in. Pt reports she did not meet with her psychiatrist, but she did see her therapist and she is taking her medications consistently. Pt shared she has been using dialectical thinking and opposite action to cope with feeling more ?on edge.? Contributing during discussion of vulnerability and benefits of practicing vulnerability. Shared personal experience of the benefits of vulnerability. Discussed ways we avoid feeling vulnerable and how this negatively affects mental health and relationships. Pt shared she wants to work on being vulnerable by going to a new [employer] group. Appeared to benefit from reflecting on the positive impact vulnerability can have on mental health. Will continue IOP aftercare to promote gains and reinforce healthy coping skills Narrative Note: []
--- NOTE | 2021-11-24 14:33 | BH.MTP_ITS ---
Treatment Plan Review Date of Admission:: 11/03/21 Date of Treatment Plan Review:: 11/24/21 Admitting Diagnoses:: 1. 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 2. Social anxiety disorder. 3. Alcohol use disorder in full remission since 2018. 4. Rule out history of opiate/benzo use disorder Current Diagnoses:: 1. 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 2. Social anxiety disorder. 3. Alcohol use disorder in full remission since 2018. 4. Rule out history of opiate/benzo use disorder Patient's Response to Treatment:: Pt responding well to treatment AEB pt's cons istent attendance, active engagement in group discussions, and reporting use of skills outside treatment environment. Status of Current Problems and Symptoms: Pt reporting continued anxiety and mood dysregulation at times. Identifies that this is due to ongoing difficulties with focus, challenging intrusive thoughts, and following through with small goals for herself. Pt has shown improvement with overall mood, communication with supports, and outlook on life. Pt has successfully returned to responsibilities and reports improved communication with her family. Problem #1 Problem Name:: Pt will maintain or see a reduction in sx Status of Goals:: Obj 1 - DSM 5 scores decreased by 11% at time of review. Based on pt's self-report she reports continued improvements in mood, increased self- care, using skills more consistently, successfully challenging thoughts on a more consistent basis, and improved relationships. Obj 2 - complete with ongoing work encouraged. Client has been reporting using positive self-talk, thought challenging, and opposite action to cope. Can improve upon consistency of use. Team Recommendations:: Recommended client continue IOP aftercare group in addition to attending regular outpatient counseling in order to maintain gains.
--- NOTE | 2021-12-01 13:55 | BH.SGPN.GN ---
Behaviors/Verbalizations/Mental Status: []Client alert and oriented, casual in appearance. Eye contact good.? Motor activity appropriate. Speech within normal limits. Affect congruent. Mood euthymic. Thoughts linear, logical, no signs of hallucinations or delusions Client Response/Progress/Benefit: []Pt responded well to session AEB providing input throughout and listening attentively to others. Pt reported mental health positive as continuing to challenge herself to get out of bed even when not feeling like it. Reports she has been able to manage her depressive sx more effectively and is using deep breathing, credit journal, and positive self-talk in order to do so. Pt stated she is still attending her outpatient counseling weekly. Pt identified current stressor as worrying she will not be able to continue to maintain these gains, however did well to challenge this. Pt connected with self-reflection discussion and activity. Worked with group to identify the benefits of self-reflection, noting it can help to improve confidence in oneself. Seemed to benefit from identifying how to incorporate self-reflection into life more often. Agreeable to complete homework of reflecting on progress in aftercare as well as reports self-reflection goal of completing a daily body-scan and take intentional ?quiet time?. Pt to continue aftercare to maintain gains and prevent decompensation. Narrative Note: []
== END 2021-12-09 23:59 ==
LOC: BHOG 07:40
PROVIDERS: PCP Family Medicine; Referring Provider Psychiatry & Neurology Psychiatry; Visit Provider Psychiatry & Neurology Psychiatry
DX: F33.2 Major depressive disorder, recurrent severe without psychotic features (principal); F40.10 Social phobia, unspecified
CPT/HCPCS: 90853

== ENCOUNTER 2021-12-12 09:08 | Outpatient (RCR) | payer OTHER, SELFPAY ==
--- NOTE | 2021-12-22 14:00 | BH.SGPN.GN ---
Behaviors/Verbalizations/Mental Status: []Client alert and oriented, casually dressed and groomed. Eye contact good. Motor activity appropriate. Speech within normal limits. Affect congruent, mood euthymic. Thoughts linear, logical, no signs of hallucinations or delusions. Client Response/Progress/Benefit: []sharing they saw their therapist this week and had a psychiatrist appointment last week, they are taking medications as prescribed, and have been using reaching out to supports, positive affirmations, and thought challenging as healthy coping skills. Receptive of discussion on healthy habits and habit formation, as well its importance in maintaining mental health stability. Pt worked cooperatively with group to identify benefits of developing and maintaining healthy habits. Engaged in brainstorming strategies for identifying and changing unhealthy habit patterns. Reported she wants to work on challenging her unhealthy habit of playing games on her phone as soon as she wakes up with intentionally getting out of bed to motivate her to begin accomplishing tasks for the day and setting parental controls to keep herself from having immediate access to her games to prevent from automatically engaging in this habit. Pt seemed to benefit from support from peers and increasing understanding of healthy habit formation benefits and strategies. Will continue IOP aftercare group and tx to maintain gains and prevent decompensation. Narrative Note: []
--- NOTE | 2021-12-29 14:00 | BH.SGPN.GN ---
Behaviors/Verbalizations/Mental Status: []Pt alert and oriented, casually dressed and groomed. Eye contact good. Motor activity restless. Speech within normal limits. Affect congruent. Mood euthymic. Thoughts linear, logical, no signs of hallucinations or delusions. Client Response/Progress/Benefit: []Pt responded well to session, attentive and engaged. Pt reports she did not have appointments this week with her therapist or psychiatrist. Pt has been taking her medications consistently. Pt reports she has been using coping skills such as opposite action, thought challenging, and radical acceptance to help cope with her recent stressors. Pt responded well to the discussion of gratitude and the benefits to mental health and relationships. Pt identified different things to focus on each day for the next 7 days to practice gratitude towards self and others. Pt shared she will practice seeing the beauty in nature, celebrating personal accomplishments, and reflect on something that makes her smile to practice gratitude over the next week. Pt recommended ongoing IOP aftercare to promote gains made in IOP and reinforce healthy coping skills. Narrative Note: []
--- NOTE | 2021-12-29 14:40 | BH.MTP_ITS ---
Treatment Plan Review Date of Admission:: 11/03/21 Date of Treatment Plan Review:: 12/29/21 Admitting Diagnoses:: 1. 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 2. Social anxiety disorder. 3. Alcohol use disorder in full remission since 2018. 4. Rule out history of opiate/benzo use disorder Current Diagnoses:: 1. 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 2. Social anxiety disorder. 3. Alcohol use disorder in full remission since 2018. 4. Rule out history of opiate/benzo use disorder Patient's Response to Treatment:: Pt continues to respond well to treatment AEB pt's consistent attendance, ongoing active engagement in group discussions, and continued reporting use of skills outside treatment environment. Status of Current Problems and Symptoms: Pt reporting continued anxiety but improved ability to manage sx. Shared that she feels more capable of consistently using her maintenance skills for managing her mental health sx. Shared difficulties with motivation at times but has been using opposite action to manage these sx as well. Pt has shown ability to maintain mood stability, consistent communication with supports, and an overall more positive outlook on life. Pt has successfully continued to return to responsibilities and reports continued improvements in communication with her family. Problem #1 Problem Name:: Pt will maintain or see a reduction in sx Status of Goals:: Obj 1 - DSM 5 scores unable to obtain at time of review. Based on pt's self-report she has continued to maintain improvements in mood, self- care, is consistently applying skills learned, and is reducing use of unhealthy distraction behaviors. Obj 2 - complete with ongoing work encouraged. Client has been reporting using positive affirmations, increased engagement with supports, and opposite action to cope. Can continue to further improve upon consistency of use. Team Recommendations:: Recommended client continue IOP aftercare group in addition to attending regular outpatient counseling in order to maintain gains.
--- NOTE | 2022-01-05 14:00 | BH.SGPN.GN ---
Behaviors/Verbalizations/Mental Status: []Pt alert and oriented, casually dressed and groomed. Eye contact good. Motor activity appropriate. Speech within normal limits. Affect congruent, mood euthymic. Thoughts linear, logical, no signs of hallucinations or delusions. Client Response/Progress/Benefit: []Pt responded well to session AEB sharing and listening attentively to others. Pt did not have appointments this week with her therapist or psychiatrist. Pt shared she is taking her medications consistently and overall she has been functioning better. Pt reported using opposite action and thought challenging this week. Pt participated in group discussion defining affirmations and why they are important. Pt provided insight throughout clinician?s presentation of tips for writing personal affirmations. Pt wrote own affirmations, including ?I can do anything, but I don?t have to do everything.? Pt appeared to benefit from increased knowledge of affirmation writing and increased self-awareness. Will continue aftercare treatment to reinforce healthy coping skills and promote gains. ? Narrative Note: []
== END 2022-01-09 23:59 ==
LOC: BHOG 09:08
PROVIDERS: PCP Family Medicine; Referring Provider Psychiatry & Neurology Psychiatry; Visit Provider Psychiatry & Neurology Psychiatry
DX: F33.2 Major depressive disorder, recurrent severe without psychotic features (principal); F10.91 Alcohol use, unspecified, in remission; F41.8 Other specified anxiety disorders
CPT/HCPCS: 90853

== ENCOUNTER 2022-01-02 14:00 | Outpatient (RCR) | payer OTHER, SELFPAY | END 2022-01-09 23:59 | LOC: NS 14:00 | PROVIDERS: PCP Family Medicine; Referring Provider Family Medicine; Visit Provider Family Medicine | DX: Z71.3 Dietary counseling and surveillance (principal); E66.9 Obesity, unspecified | CPT/HCPCS: 97802; 97803 ==

== ENCOUNTER 2022-01-10 08:04 | Outpatient (RCR) | payer OTHER, SELFPAY ==
--- NOTE | 2022-01-12 14:00 | BH.SGPN.GN ---
Behaviors/Verbalizations/Mental Status: []Client alert and oriented, casually dressed and groomed. Eye contact good. Motor activity appropriate. Speech within normal limits. Affect congruent, mood euthymic. Thoughts linear, logical, no signs of hallucinations or delusions. Client Response/Progress/Benefit: []Pt receptive of session, engaged throughout. Pt completed her aftercare self-reflection worksheet sharing they saw their therapist this week and psychiatrist, they are taking medications as prescribed, and have been using opposite action, setting boundaries, and affirmations. Receptive of discussion on personal accountability and its importance in maintaining mental health stability. Pt worked cooperatively with group to identify benefits of maintaining personal accountability. Engaged in brainstorming strategies for improving ability to hold themselves accountable. Reported she wants to work on creating a checklist of personal hygiene tasks to complete each night to put on her mirror as a visual accountability que. Pt seemed to benefit from support from peers and increasing understanding of personal accountability benefits and strategies. Will d/c IOP aftercare group and continue with individual outpatient tx to maintain gains and prevent decompensation. Narrative Note: []
--- NOTE | 2022-01-12 14:20 | BH.DS_ITS ---
Discharge Summary - Demographics Date of Admission:: 11/10/21 Discharge Date: 01/12/22 Presenting Problems at Admission:: Pt discharged from IOP tx and transitioned to IOP aftercare to maintain gains pt made in IOP and to reinforce healthy coping skills. At admission to IOP aftercare, pt continued to report symptoms of depression, anxiety, and worries about family and her future. Pt also was experiencing stressors with relationships, challenging negative core beliefs, and maintaining self-care. Discharge Diagnoses:: Major depressive disorder, recurrent, severe without psychosis (resolving); Social anxiety disorder; Alcohol use disorder in full remission since 2018; Rule out history of opiate/benzo use disorder Reason for Discharge:: Pt has accomplished tx goals AEB ability to maintain mood stability and gains made in IOP. Pt's DSM-5 scores decreased by an additional 50% from IOP admission. Pt will transition to traditional outpatient counseling. - Treatment Progress During Treatment & Response: Pt responded well and made progress in IOP aftercare as evidenced by pt's participation in group discussions and self- report of consistently applying coping skills. Pt's overall DSM-5 scores decreased by 50% from IOP admission. Pt?s depression decreased by 67% since original IOP admission and pt's scores for anxiety decreased by 67% compared to original IOP scores. Additionally, at discharge Pt was reporting consistently practicing self-care, using healthy coping skills, and pt recently got a new job. Pt still has symptoms and stressors that need resolved and processed, but pt reports overall increased ability to cope. Issues Still to be Addressed:: Depression, anxiety, communication, negative automatic thoughts Discharge Recommendations/Instructions:: Emi Torres for individual counseling and Judith Duong for medication management. Discharge Handout: Complete Discharge Handout with client on aftercare options and continuity of care.
== END 2022-01-13 07:03 | disposition home or self-care (01) ==
LOC: BHOG 08:04
PROVIDERS: PCP Family Medicine; Referring Provider Psychiatry & Neurology Psychiatry; Visit Provider Psychiatry & Neurology Psychiatry
DX: F33.2 Major depressive disorder, recurrent severe without psychotic features (principal); F10.91 Alcohol use, unspecified, in remission; F41.8 Other specified anxiety disorders
CPT/HCPCS: 90853

== ENCOUNTER 2022-01-31 10:30 | Outpatient (RCR) | payer OTHER, SELFPAY | END 2022-02-08 23:59 | LOC: NS 10:30 | PROVIDERS: PCP Family Medicine; Referring Provider Family Medicine; Visit Provider Family Medicine | DX: Z71.3 Dietary counseling and surveillance (principal); E66.9 Obesity, unspecified | CPT/HCPCS: 97803 ==

== ENCOUNTER → 2022-02-06 | Outpatient (CLI) | payer OTHER, SELFPAY ==
[2022-02-06 17:59] LABS: Vitamin D,25 Hydroxy 17.3 ng/mL
[2022-02-06 18:02] LABS: Anion Gap 7 (5-15); BUN 20 mg/dL (7-18); BUN/Creat Ratio 22.8 RATIO (10-20); Chloride 108 mmol/L (98-107); Creatinine, Serum 0.88 mg/dL (0.55-1.02); EST Glomerular Filtration Rate 73 mL/min (>60); Est Glom Filt Rate - Afr Amer 89 mL/min (>60); Glucose 90 mg/dL (74-106); Potassium 4.2 mmol/L (3.5-5.1); Sodium Level 141 mmol/L (136-145)
== END | disposition home or self-care (01) ==
LOC: MFPLAB 14:57
PROVIDERS: PCP Family Medicine; Visit Provider Family Medicine
DX: F10.20 Alcohol dependence, uncomplicated (principal); R79.89 Other specified abnormal findings of blood chemistry
CPT/HCPCS: 36415; 80048; 82306

== ENCOUNTER 2022-02-14 09:06 | Outpatient (RCR) | payer OTHER, SELFPAY | END 2022-03-11 23:59 | LOC: NS 09:06 | PROVIDERS: PCP Family Medicine; Referring Provider Family Medicine; Visit Provider Family Medicine | DX: Z71.3 Dietary counseling and surveillance (principal); E66.9 Obesity, unspecified | CPT/HCPCS: 97803 ==

== ENCOUNTER → 2023-06-07 | Outpatient (CLI) | payer OTHER, SELFPAY ==
[2023-06-07 12:32] LABS: Vitamin D,25 Hydroxy 33.6 ng/mL
[2023-06-07 12:48] LABS: AST(SGOT) 16 U/L (15-37); Alanine Aminotransfer ALT/SGPT 20 U/L (13-56); Albumin, Serum 3.7 g/dL (3.2-5.0); Alkaline Phosphatase 75 U/L (45-117); Anion Gap 6 (5-15); BUN 12 mg/dL (7-18); BUN/Creat Ratio 11.3 RATIO (10-20); Calcium,Total 9.1 mg/dL (8.5-10.1); Chloride 108 mmol/L (98-107); Cholesterol 179 mg/dL (200); Creatinine, Serum 1.06 mg/dL (0.55-1.02); EST Glomerular Filtration Rate 59 mL/min (>60); Est Glom Filt Rate - Afr Amer 71 mL/min (>60); Globulin 3.6 g/dL (2.2-4.2); Glucose 95 mg/dL (74-106); High Density Lipoprotein 58 mg/dL; Potassium 4.1 mmol/L (3.5-5.1); Protein, Total 7.3 g/dL (6.4-8.2); Sodium Level 138 mmol/L (136-145); Thyroid Stim Hormone (TSH) 1.81 uIU/mL (0.358-3.74); Triglycerides 62 mg/dL; Very Low Density Lipoprotein 12 mg/dL (5-40)
== END | disposition home or self-care (01) ==
LOC: MFPLAB 10:17
PROVIDERS: PCP Family Medicine; Visit Provider Family Medicine
DX: F32.A Depression, unspecified (principal); K21.9 Gastro-esophageal reflux disease without esophagitis; Z13.220 Encounter for screening for lipoid disorders
CPT/HCPCS: 36415; 80053; 80061; 82306; 84443

== ENCOUNTER 2023-07-05 02:19 | Emergency (ER) | payer OTHER, SELFPAY ==
[2023-07-05 02:19] VITALS: BP 151/97; PULSE 97; RESP 18; TEMP 37.1; O2SAT 96; BMI 34.7
--- NOTE | 2023-07-05 02:52 | CT_ITS ---
EXAM: CT ABDOMEN AND PELVIS WITHOUT INTRAVENOUS CONTRAST CLINICAL INDICATION: flank pain TECHNIQUE: Helically acquired images were obtained of the abdomen and pelvis without intravenous contrast. This CT exam was performed using one or more of the following dose reduction techniques: automated exposure control, adjustment of the mA and/or kV according to patient size, and/or use of iterative reconstruction technique. RADIATION DOSE: Total DLP: 751.04 mGy-cm. COMPARISON: Previous CT of 12/21/2012. FINDINGS: LOWER THORAX: Visualized lung bases are clear except for minimal dependent atelectasis. No coronary artery calcification or significant pericardial effusion. Small hiatal hernia. ABDOMEN: LIVER: Unremarkable. Homogeneous. GALLBLADDER AND BILE DUCTS: Gallbladder is elongated measuring 4 cm in transverse diameter by approximately 14 cm in length. No calcified gallstones are identified though there is slight inhomogeneity within the gallbladder lumen, possibly sludge or noncalcified stones. No wall thickening or pericholecystic stranding. Normal caliber common bile duct. PANCREAS: Unremarkable. No focal cystic mass. SPLEEN: Spleen is upper normal in size. ADRENALS: Unremarkable. No nodules. KIDNEYS AND URETERS: Left kidney is asymmetrically enlarged and edematous with moderately severe hydronephrosis due to a 17 x 12 x 8 mm lobulated stone which lies at the ureteropelvic junction. There is associated perirenal stranding on the left. A few tiny nonobstructing stones are seen within the left renal lower pole collecting system. Right kidney is unremarkable. No right-sided hydronephrosis or right ureteral stone. STOMACH AND BOWEL: Findings of previous gastric sleeve procedure. No distended small bowel loops. No findings of small bowel obstruction, colitis or diverticulitis. PELVIS: APPENDIX: Normal. No evidence of acute appendicitis. BLADDER: Partially distended urinary bladder is unremarkable. REPRODUCTIVE: Absent uterus. No adnexal mass. ABDOMEN and PELVIS: INTRAPERITONEAL SPACE: Unremarkable. No ascites or other fluid collection. No free air. BONES/JOINTS: Lumbar facet arthritis. No acute osseous abnormality. No suspicious lytic or blastic abnormality. SOFT TISSUES: Unremarkable. No discrete abdominal or pelvic wall hernia. VASCULATURE: Unremarkable. Abdominal aorta is non-dilated. LYMPH NODES: Unremarkable. No enlarged lymph nodes. CT/Abdomen/Pelvis without Cont IMPRESSION: Moderately severe left hydronephrosis due to a 17 mm stone at the ureteropelvic junction. Previous gastric sleeve procedure. Mildly distended/elongated gallbladder with possible sludge or noncalcified stones within the gallbladder lumen. No calcified gallstones, wall thickening or biliary ductal dilatation. Electronically Signed: Elijah Quiñones MD at 5:32 EDT ,
[2023-07-05 03:01] LABS: Absolute Lymphocyte Count 0.92 X10^3/uL (0.83-4.51); Absolute Neutrophil Count 10.7 X10^3/uL (2.0-7.7); Basophil# 0.07 X10^3/uL; Basophil% 0.6 % (0-1); Eosinophil# 0.03 X10^3/uL; Eosinophils% 0.2 % (0-5); Hematocrit 36.2 % (37-47); Hemoglobin 11.5 g/dL (12.0-15.0); Lymphocyte # 0.92 X10^3/ul (0.83-4.51); Lymphocyte % 7.4 % (19-41); Mean Corp Hgb Conc 31.8 g/dL (32-36); Mean Corpuscular Hgb 25.2 pg (27.0-32.0); Mean Corpuscular Volume 79.2 fL (81-99); Mean Platelet Vol. 11.3 fl (6.2-12.0); Monocyte# 0.77 X10^3/uL; Monocyte% 6.2 % (0-10); NRBC Flagged by Analyzer 0 % (0-5); Neutrophil # 10.66 X10^3/uL (2.7-7.7); Neutrophil % 85.1 % (47-70); Platelet Count 252 K/mm3 (150-450); RBC Distribution Width CV 13.3 % (11.6-14.6); RBC Distribution Width SD 38.3 fl (35.1-43.9); Red Blood Count 4.57 M/mm3 (4.2-5.4); White Blood Count 12.5 K/mm3 (4.4-11.0)
[2023-07-05] MEDS: Ondansetron 4 MG/2 ML Vial IV (03:02)
[2023-07-05] MEDS: Ketorolac 30 MG/ML Syringe IV (03:02)
[2023-07-05] MEDS: 0.9% Normal Saline (1000mL) 1,000 ML 999 ML IV (03:02)
[2023-07-05 03:12] LABS: Bacteria 0 SEEN /hpf (None Seen); Mucous, Urine 0 SEEN /hpf (<or=2+)
[2023-07-05 03:13] LABS: Color, Urine Yellow (Yellow); Glucose, Dipstick Normal (Normal); Ketone-Dipstick Negative (Negative); Leukocyte Esterase-Dipstick 500 /ul (Negative); Nitrite-Dipstick Negative (Negative); Occult Blood-Urine 50 /ul (Negative); Protein-Dipstick 15 mg/dl (Negative); Specific Gravity, Urine 1.015 (1.002-1.030); Urine Bilirubin Dipstick Negative (Negative); Urine Clarity Clear (Clear); Urine Urobilinogen Normal (Normal); Urine pH 6.5 (5.0 - 8.0)
[2023-07-05 03:26] LABS: Red Blood Cells-Urine 5-10 SEEN /hpf (0-5); Squamous Epithelial Cells - UA 0-5 SEEN /hpf (5-10); White Blood Cells 50-100 SEEN /hpf (0-5)
[2023-07-05 03:32] LABS: Anion Gap 5 (5-15); BUN 11 mg/dL (7-18); BUN/Creat Ratio 7.1 RATIO (10-20); Calcium,Total 9.2 mg/dL (8.5-10.1); Chloride 106 mmol/L (98-107); Creatinine, Serum 1.55 mg/dL (0.55-1.02); EST Glomerular Filtration Rate 38 mL/min (>60); Est Glom Filt Rate - Afr Amer 46 mL/min (>60); Estimated Creatinine Clearance 46.47 ml/min; Glucose 136 mg/dL (74-106); Sodium Level 136 mmol/L (136-145)
--- NOTE | 2023-07-05 03:50 | EX.ED.DYSGE1 ---
HPI History of Present Illness Chief Complaint: Abd Pain Informant: patient Narrative Narrative: Patient is a 48-year-old female with history of depression who reports left-sided flank/abdominal pain. She states she felt sharp left-sided pain roughly 2 days ago the lasted for 1 to 2 hours and then resolved. She states that there was no trauma or excessive activity and as the pain spontaneous resolved she did not think much of it. However the pain returned once again tonight spontaneously and this time is not improving/resolving with time. She denies any fevers or chills diarrhea or dysuria or hematuria. She states that she has had bouts of nausea and vomiting secondary to the pain. As symptoms or not improving she presents for evaluation [facility] Medical History Alcohol use disorder, mild, in sustained remission Major depressive disorder, recurrent severe without psychotic features Social anxiety disorder Home Medications venlafaxine 37.5 mg tablet 37.5 mg PO DAILY 12/21/12 [History Last Taken Unknown] melatonin 10 mg capsule 10 mg PO QHS PRN PRN Insomnia 09/07/21 [History Last Taken Unknown] vortioxetine 10 mg tablet (Trintellix) 10 mg PO DAILY 09/07/21 [History Last Taken Unknown] ketorolac 10 mg tablet 10 mg PO 4X/DAY PRN pain 5 days #20 tabs 07/05/23 [Rx Last Taken Unknown] methylphenidate HCl 27 mg tablet,extended release 24 hr 27 mg PO 07/05/23 [History Last Taken Unknown] omeprazole 40 mg capsule,delayed release 40 mg PO DAILY 07/05/23 [History Last Taken Unknown] ondansetron 4 mg disintegrating tablet 4 mg PO TID PRN nausea and vomiting #21 tabs 07/05/23 [Rx Last Taken Unknown] oxycodone-acetaminophen 5 mg-325 mg tablet (Percocet) 1 tab PO Q6H PRN pain 5 days #20 tabs 07/05/23 [Rx Last Taken Unknown] solifenacin 10 mg tablet 10 mg PO DAILY 07/05/23 [History Last Taken Unknown] tamsulosin 0.4 mg capsule (Flomax) 0.4 mg PO DAILY #14 caps 07/05/23 [Rx Last Taken Unknown] Allergy/AdvReac Type Severity Reaction Status Date / Time Sulfa (Sulfonamide Allergy Hives Verified 07/05/23 02:24 Antibiotics) Surgical History (Updated 09/07/21 @ 14:11 by Tessie Lieberman) History of hysterectomy Social History Smoking Status: Never smoker ROS ROS ED Constitutional Constitutional ED: Denies chills or fever(s) ENT ENT ED: Denies sore throat Cardiovascular Cardiovascular: Denies chest pain Respiratory/Chest Respiratory/Chest: Denies cough or dyspnea Gastrointestinal Gastrointestinal: Reports abdominal pain, nausea and vomiting; Denies diarrhea Genitourinary Genitourinary ED: Denies dysuria, hematuria or urinary frequency Musculoskeletal Musculoskeletal: Reports back pain Integumentary Denies rash Neurologic Neurologic: Denies headache(s) Hematologic/Lymphatic Hematologic/Lymphatic: Denies easy bleeding or easy bruising EXAM Physical Exam Const Vital Signs: 07/05/23 02:19 07/05/23 04:19 07/05/23 06:00 Temperature 98.8 F 97.6 F L Temperature Source Oral Temporal Pulse Rate 97 82 79 Respiratory Rate 18 16 18 Blood Pressure 151/97 H 124/80 H 118/80 Blood Pressure Mean 115 94 92 Pulse Ox 96 95 98 Oxygen Delivery Method Room Air Room Air Room Air Positive well nourished, well developed and obese General Appearance ED: well developed; Negative for pallor Nutritional Appearance: obese HEENT HEENT Narrative: Normocephalic atraumatic Eyes PERRL and EOMs intact bilaterally General Eye ED: Negative for scleral icterus Neck supple Resp normal respiratory effort and clear to auscultation bilaterally Cardio regular rate and regular rhythm GI non-distended and no masses GI Narrative: Abdomen is soft and nondistended with normal active bowel sounds. Patient has pain on palpation along the left mid upper abdomen without voluntary guarding or rigidity. No pulsatile mass or fluid wave Auscultation: normoactive bowel sounds Palpation: soft Back/Spine Back/Spine Narrative: Positive left CVA pain noted Extremity normal to inspection Neuro oriented x3, CN's II-XII intact bilaterally and no sensory deficits noted Sensorium / Orientation: alert Motor Exam: strength 5/5 throughout Psych mental status grossly normal Skin no rashes or lesions noted and no wounds General Skin Exam: Negative for jaundice or pallor MDM MDM MDM Narrative Medical decision making narrative: Patient arrived to the ER hypertensive but otherwise with stable vitals. History and exam is most consistent with kidney stone however there is also concern for potential UTI/pyelonephritis or intestinal pathology such as colitis/diverticulitis. As her exam and history is most consistent with stone basic blood work and a urine sample as well as noncontrast CT were obtained. Blood work showed mild elevation to her creatinine at 1.55 but no true findings to suggest acute kidney injury. Urine sample also showed no bacteria going against urosepsis. CT scan showed a large stone that was 17 x 12 x 8 mm in size causing moderate to severe hydronephrosis. Secondary to this large stone the case was discussed with urology on-call Dr. Mabry. He agrees that as there is not bilateral stones and patient does not have signs of acute kidney injury or urosepsis so there is no need for admission at this time. Patient also reports her pain is now down to a value of a 2 or 3 after receiving Toradol so there is no need for admission for intractable pain. The plan of care was discussed with the patient she is agreeable to it and therefore we discharged at this time and she will follow-up with urology on an outpatient basis to discuss potential need for surgical removal of her large stone History & Record Review Discussion w/independent historian: Patient Lab Data Attestation: I reviewed the patient's lab results. Labs: Laboratory Results - last 24 hr 07/05/23 07/05/23 02:34 03:08 WBC 12.5 H RBC 4.57 Hgb 11.5 L Hct 36.2 L MCV 79.2 L MCH 25.2 L MCHC 31.8 L RDW Std Deviation 38.3 RDW Coeff of Cesar 13.3 Plt Count 252 MPV 11.3 Immature Gran % (Auto) 0.500 Neut % (Auto) 85.1 H Lymph % (Auto) 7.4 L Page % (Auto) 6.2 Eos % (Auto) 0.2 Baso % (Auto) 0.6 Absolute Neuts (auto) 10.7 H Absolute Lymphs (auto) 0.92 Nucleated RBC % 0 Sodium 136 Potassium 4.0 Chloride 106 Carbon Dioxide 25.0 Anion Gap 5 BUN 11 Creatinine 1.55 H Estim Creat Clear Calc 46.47 Est GFR (MDRD) Af Amer 46 L Est GFR (MDRD) Non-Af 38 L BUN/Creatinine Ratio 7.1 L Glucose 136 H Calcium 9.2 Urine Color Yellow Urine Clarity Clear Urine pH 6.5 Ur Specific [place] 1.015 Urine Protein 15 H Urine Glucose (UA) Normal Urine Ketones Negative Urine Occult Blood 50 H Urine Nitrite Negative Urine Bilirubin Negative Urine Urobilinogen Normal Ur Leukocyte Esterase 500 H Urine RBC 5-10 SEEN Urine WBC 50-100 SEEN Ur Squamous Epith Cells 0-5 SEEN Urine Bacteria 0 SEEN Urine Mucus 0 SEEN Radiography Diagnostic Testing: Clinical Impression(s) from Imaging Studies Abdomen/Pelvis CT 07/05/23 02:52 IMPRESSION: Moderately severe left hydronephrosis due to a 17 mm stone at the ureteropelvic junction. Previous gastric sleeve procedure. Mildly distended/elongated gallbladder with possible sludge or noncalcified stones within the gallbladder lumen. No calcified gallstones, wall thickening or biliary ductal dilatation. Electronically Signed: Elijah Quiñones MD at 5:32 EDT , Management Discussion w/another healthcare provider: Manager Roofing Discharge Plan Triage Chief Complaint: Abd Pain ED Provider: Naif John Dx/Rx/DC Orders Clinical Impression: Renal colic, Kidney stone, Hx of major depression Instructions: ED Kidney Stone with Pain Prescriptions: New ondansetron 4 mg tablet,disintegrating 4 mg PO TID PRN (Reason: nausea and vomiting) Qty: 21 0RF tamsulosin [Flomax] 0.4 mg capsule 0.4 mg PO DAILY Qty: 14 0RF ketorolac 10 mg tablet 10 mg PO 4X/DAY PRN (Reason: pain) 5 Days Qty: 20 0RF oxycodone-acetaminophen [Percocet] 5-325 mg tablet 1 tab PO Q6H PRN (Reason: pain) 5 Days Qty: 20 0RF No Action venlafaxine 37.5 MG tablet 37.5 mg PO DAILY melatonin 10 mg Capsule 10 mg PO QHS PRN PRN (Reason: Insomnia) Trintellix 10 mg Tablet 10 mg PO DAILY omeprazole 40 mg capsule,delayed release(DR/EC) 40 mg PO DAILY methylphenidate HCl 27 mg tablet extended release 24hr 27 mg PO solifenacin 10 mg tablet 10 mg PO DAILY Primary Care Provider: Ren Connor Referrals: Ren Connor MD [Primary Care Provider] - Varun Mabry MD [Med Staff - Active Staff] - Activity Restrictions/Additional Instructions: You have a large kidney stone lodged in your proximal left ureter. Secondary to this follow-up with Dr. Mabry/urology as directed. Take your medication as prescribed for symptom control. However if you develop a fever over 100.4 or your pain is not controlled with the prescribed medications please return to the hospital/ER for repeat evaluation Disposition Disposition: Home, Self Care
[2023-07-05 04:19] VITALS: BP 124/80; PULSE 82; RESP 16; O2SAT 95
[2023-07-05 06:00] VITALS: BP 118/80; PULSE 79; RESP 18; TEMP 36.4; O2SAT 98
[2023-07-05 06:14] VITALS: BP 118/80; PULSE 79; RESP 18; TEMP 36.4; O2SAT 98
== END 2023-07-05 06:15 | disposition home or self-care (01) ==
PROVIDERS: Emergency Provider Emergency Medicine; PCP Family Medicine; Visit Provider Emergency Medicine
DX: N13.2 Hydronephrosis with renal and ureteral calculous obstruction (principal); N23 Unspecified renal colic; E66.9 Obesity, unspecified
CPT/HCPCS: 74176; 80048; 81001; 85025; 96361; 96374; 96375; 99282; J7030; A4216; J2405

== ENCOUNTER 2023-07-13 14:40 | Emergency (ER) | payer OTHER, SELFPAY ==
[2023-07-13 14:40] VITALS: BP 146/98; PULSE 92; RESP 18; TEMP 35.9; O2SAT 96; BMI 35.0
--- NOTE | 2023-07-13 15:11 | CT_ITS ---
STUDY: CT ABDOMEN AND PELVIS WITHOUT CONTRAST REASON FOR EXAM: Female, 48 years old. left flank pain RADIATION DOSAGE (If Supplied By Facility): CTDIvol = ( 16.48 ) mGy, DLP = ( 774.06 ) mGycm TECHNIQUE: Transaxial images were obtained from the dome of the diaphragm to the symphysis pubis without oral contrast, and without intravenous contrast. Sagittal and coronal images were reconstructed. Individualized dose optimization techniques were used for this CT. COMPARISON: July 05, 2023 FINDINGS: The visualized lung bases are unremarkable. The visualized portions of the heart are within normal limits. Small hiatal hernia noted. Normal liver. Nonspecific gallbladder distention without calcified stones or pericholecystic edema. Normal spleen. Normal pancreas. Normal bilateral adrenal glands. Normal right kidney. Multiple tiny nonobstructing calculi in the lower pole collecting system of the left kidney There is moderate left renal obstruction with stranding in the perinephric fat secondary to multiple tiny calcified stones in the proximal to mid ureter status post ureterovesical stent placement Postop changes status post gastric sleeve procedure.. Normal small intestine. Diffuse fecal retention noted within the colon.. The appendix is visualized and appears normal. Normal abdominal aorta. Normal inferior vena cava. Normal retroperitoneum. Incompletely distended thick walled bladder likely of no significance. Uterus not visualized consistent with hysterectomy Normal abdominal wall. Lumbar spine demonstrates mild degenerative change. Fragments of the previously noted calculus in the ureteropelvic junction are now noted within the proximal mid ureter status post lithotripsy. CT/Abdomen/Pelvis without Cont IMPRESSION: Persistent moderate left hydronephrosis secondary to calculi in the proximal to mid ureter status post ureterovesical stent placement Cannot definitively exclude coexisting obstruction of the stent. Clinical correlation is recommended in this regard. Other findings as above Electronically Signed: Miguel Hyde MD at 16:56 EDT ,
--- NOTE | 2023-07-13 15:13 | ED.VIS.FEGU ---
HPI HPI - Female History of Present Illness Chief Complaint: Flank Pain Narrative Narrative: 48-year-old female past medical history of recent lithotripsy and stent placement for large ureteral stone and hydronephrosis presents with flank pain and at the direction of her primary care provider for imaging. She relates history that she was diagnosed with a large left-sided ureteral stone that was over a centimeter in size. She followed up with Dr. Mabry with urology on Sunday last week, almost 7 days ago and had lithotripsy performed and a stent placed. She started having pain again today. She is out of of ketorolac but still taking Pyridium and Flomax. She did not want to take any oxycodone. She attempted to take ibuprofen but this did not relieve her pain. She states that the urologist is out of the office today, and she called her primary care provider who told her that she probably needs imaging, either a CT or a KUB x-ray in the event that the stent has been displaced. She denies any dysuria or hematuria, no fevers or chills, no nausea or vomiting, no exacerbating or alleviating symptoms. At same pain that she had when she had the obstruction. [facility] Medical History Alcohol use disorder, mild, in sustained remission Major depressive disorder, recurrent severe without psychotic features Social anxiety disorder Home Medications melatonin 10 mg capsule 10 mg PO QHS PRN PRN Insomnia 09/07/21 [History Last Taken Unknown] methylphenidate HCl 27 mg tablet,extended release 24 hr 27 mg PO DAILY 07/05/23 [History Last Taken Unknown] solifenacin 10 mg tablet 10 mg PO DAILY 07/05/23 [History Last Taken Unknown] tamsulosin 0.4 mg capsule (Flomax) 0.4 mg PO DAILY #14 caps 07/05/23 [Rx Last Taken Unknown] ketorolac 10 mg tablet 10 mg PO TID PRN pain 5 days #15 tabs 07/13/23 [Rx Last Taken Unknown] vortioxetine 20 mg tablet (Trintellix) 20 mg PO DAILY 07/13/23 [History Last Taken Unknown] Allergy/AdvReac Type Severity Reaction Status Date / Time Sulfa (Sulfonamide Allergy Hives Verified 07/05/23 02:24 Antibiotics) Surgical History History of hysterectomy Social History Smoking Status: Never smoker ROS ROS ED ROS Narrative Constitutional: No fever, no chills. HEENT: No sore throat. No neck pain. No loss of vision. No rhinorrhea. Cardiovascular: No chest pain. No palpitations. No pedal edema. Respiratory: No cough, no shortness of breath. Abdominal: No abdominal pain. No nausea. No vomiting. Genitourinary: No dysuria. No hematuria. [place] urine secondary to Pyridium. Positive left flank pain. Musculoskeletal: No myalgias. No arthralgias. Neurologic: No headaches. No dizziness. No lightheadedness. Skin: No rash. No change in color. EXAM Physical Exam Narrative Exam Narrative: Afebrile. Vital signs noted. HEENT: Normocephalic. Atraumatic. PERRL, EOMI. Neck soft and supple. No point tenderness or step off. Cardiovascular: Regular rate and rhythm. No murmurs, rubs, or gallops appreciated. Respiratory: No tachypnea. Lungs clear to auscultation bilaterally. Gastrointestinal: Abdomen soft, nontender, with normoactive bowel sounds. No rebound or guarding. Mild CVA tenderness to percussion, left. Neurological: Awake. Alert. Nonfocal, nonlateralizing. Skin: No rash. Normal color. No pallor. Musculoskeletal: No pedal edema. Full range of motion extremities. Const Vital Signs: 07/13/23 14:40 07/13/23 16:40 Temperature 96.7 F L Temperature Source Temporal Pulse Rate 92 89 Respiratory Rate 18 16 Blood Pressure 146/98 H 140/82 H Blood Pressure Mean 114 101 Pulse Ox 96 98 Oxygen Delivery Method Room Air Room Air MDM MDM MDM Narrative Medical decision making narrative: In the differential diagnosis is dislodgment of the stent versus reaccumulation of the stone, or retained stone. She states that she is post to have imaging performed next week to see if there is any remaining stone and her stent is supposed to be removed. I had a lengthy discussion with the patient. Through shared decision-making, she does not want blood work or any intramuscular injections for analgesia, and does not want an IV placed. I do not feel that she requires any laboratory work, but I will obtain a urinalysis to help rule out infection, and CT imaging will be performed. test is not needed because she is status post hysterectomy remotely. I reviewed her urinalysis, and there is 0 bacteria with positive nitrites. WBC 0-5. I do not feel antibiotics are indicated. Her urine was sent for culture. She was given oral Toradol here for analgesia. I reviewed the CT of the abdomen and pelvis without contrast radiology report which mentions persistent left hydronephrosis with fat stranding, with ureteral stent in place with calculi in the proximal to mid ureter radiologist mentions cannot definitely exclude stent occlusion and recommend clinical correlation. Upon repeat examination, she states that she was having persistent pain. I discussed with her IV placement, morphine administration, and obtaining lab work. This is to check her creatinine as well. I also discussed the possibility of transfer as there is no urologist on-call today. I reviewed her laboratory work and she has normal white count of 8.1, hemoglobin slightly low 11.5, platelet count normal at 326. Review of her BMP shows her creatinine 1.18 but not significantly elevated with a BUN of 11. I was able to put a page out to Dr. Mabry as he is on-call for his own patients and he had performed the procedure on her last week. I discussed with him her laboratory results and the radiology report, it was not felt that she requires admission. She will be sent home with a renewed prescription for Toradol, and will use her oxycodone as needed. She will follow-up with him next week as scheduled, or call the office on Sunday. Return instructions to the emergency department were reviewed. Disposition is discharged home in stable condition. History & Record Review Discussion w/independent historian: Patient Additional record(s) reviewed:: Prior ED visit and Prior labs Lab Data Attestation: I reviewed the patient's lab results. Labs: Laboratory Results - last 24 hr 07/13/23 07/13/23 15:22 17:34 WBC 8.1 RBC 4.61 Hgb 11.5 L Hct 37.4 MCV 81.1 MCH 24.9 L MCHC 30.7 L RDW Std Deviation 39.4 RDW Coeff of Cesar 13.6 Plt Count 326 MPV 10.7 Immature Gran % (Auto) 0.400 Neut % (Auto) 66.7 Lymph % (Auto) 23.9 [place] % (Auto) 5.3 Eos % (Auto) 3.1 Baso % (Auto) 0.6 Absolute Neuts (auto) 5.4 Absolute Lymphs (auto) 1.92 Nucleated RBC % 0 Sodium 139 Potassium 3.6 Chloride 105 Carbon Dioxide 28.0 Anion Gap 6 BUN 11 Creatinine 1.18 H Estim Creat Clear Calc 61.30 Est GFR (MDRD) Af Amer 63 Est GFR (MDRD) Non-Af 52 L BUN/Creatinine Ratio 9.3 L Glucose 91 Calcium 9.0 Urine Color Yellow Urine Clarity Clear Urine pH 7.0 Ur Specific [place] 1.005 Urine Protein 30 H Urine Glucose (UA) Normal Urine Ketones Negative Urine Occult Blood 25 H Urine Nitrite Positive H Urine Bilirubin Negative Urine Urobilinogen 1 H Ur Leukocyte Esterase 500 H Urine RBC 0 SEEN Urine WBC 0-5 SEEN Ur Squamous Epith Cells 0-5 SEEN Urine Bacteria 0 SEEN Urine Mucus 0 SEEN Radiography Diagnostic Testing: Clinical Impression(s) from Imaging Studies Abdomen/Pelvis CT 07/13/23 15:11 IMPRESSION: Persistent moderate left hydronephrosis secondary to calculi in the proximal to mid ureter status post ureterovesical stent placement Cannot definitively exclude coexisting obstruction of the stent. Clinical correlation is recommended in this regard. Other findings as above Electronically Signed: Miguel Hyde MD at 16:56 EDT , Discharge Plan Triage Chief Complaint: Flank Pain ED Provider: Jac Avendaño Dx/Rx/DC Orders Clinical Impression: Ureteral stent present, Left flank pain Instructions: ED Kidney Stone with Pain Prescriptions: New ketorolac 10 mg tablet 10 mg PO TID PRN (Reason: pain) 5 Days Qty: 15 0RF No Action melatonin 10 mg Capsule 10 mg PO QHS PRN PRN (Reason: Insomnia) methylphenidate HCl 27 mg tablet extended release 24hr 27 mg PO DAILY solifenacin 10 mg tablet 10 mg PO DAILY tamsulosin [Flomax] 0.4 mg capsule 0.4 mg PO DAILY Qty: 14 0RF Trintellix 20 mg tablet 20 mg PO DAILY Primary Care Provider: Ren Connor Referrals: Ren Connor MD [Primary Care Provider] - Varun Mabry MD [Med Staff - Active Staff] - 3-5 Days if not improving Activity Restrictions/Additional Instructions: Return with fever, intractable pain, new or worsening symptoms. Disposition Disposition: Home, Self Care
[2023-07-13] MEDS: Ketorolac 10 MG Tablet PO (15:15)
[2023-07-13 15:27] LABS: Bacteria 0 SEEN /hpf (None Seen); Mucous, Urine 0 SEEN /hpf (<or=2+); Red Blood Cells-Urine 0 SEEN /hpf (0-5)
[2023-07-13 15:29] LABS: Color, Urine Yellow (Yellow); Glucose, Dipstick Normal (Normal); Ketone-Dipstick Negative (Negative); Leukocyte Esterase-Dipstick 500 /ul (Negative); Nitrite-Dipstick Positive (Negative); Occult Blood-Urine 25 /ul (Negative); Protein-Dipstick 30 mg/dl (Negative); Specific Gravity, Urine 1.005 (1.002-1.030); Urine Bilirubin Dipstick Negative (Negative); Urine Clarity Clear (Clear); Urine Urobilinogen 1 mg/dl (Normal)
[2023-07-13 16:09] LABS: Squamous Epithelial Cells - UA 0-5 SEEN /hpf (5-10); White Blood Cells 0-5 SEEN /hpf (0-5)
[2023-07-13 16:40] VITALS: BP 140/82; PULSE 89; RESP 16; O2SAT 98
[2023-07-13] MEDS: Morphine 4 MG/ML Syringe IV (17:46)
[2023-07-13] MEDS: Ondansetron 4 MG/2 ML Vial IV (17:46)
[2023-07-13] MEDS: 0.9% Normal Saline (1000mL) 1,000 ML 999 ML IV (17:46)
[2023-07-13 17:52] LABS: Absolute Lymphocyte Count 1.92 X10^3/uL (0.83-4.51); Absolute Neutrophil Count 5.4 X10^3/uL (2.0-7.7); Basophil# 0.05 X10^3/uL; Basophil% 0.6 % (0-1); Eosinophil# 0.25 X10^3/uL; Eosinophils% 3.1 % (0-5); Hematocrit 37.4 % (37-47); Hemoglobin 11.5 g/dL (12.0-15.0); Lymphocyte # 1.92 X10^3/ul (0.83-4.51); Lymphocyte % 23.9 % (19-41); Mean Corp Hgb Conc 30.7 g/dL (32-36); Mean Corpuscular Hgb 24.9 pg (27.0-32.0); Mean Corpuscular Volume 81.1 fL (81-99); Mean Platelet Vol. 10.7 fl (6.2-12.0); Monocyte# 0.43 X10^3/uL; Monocyte% 5.3 % (0-10); NRBC Flagged by Analyzer 0 % (0-5); Neutrophil # 5.37 X10^3/uL (2.7-7.7); Neutrophil % 66.7 % (47-70); Platelet Count 326 K/mm3 (150-450); RBC Distribution Width CV 13.6 % (11.6-14.6); RBC Distribution Width SD 39.4 fl (35.1-43.9); Red Blood Count 4.61 M/mm3 (4.2-5.4); White Blood Count 8.1 K/mm3 (4.4-11.0)
[2023-07-13 17:53] LABS: POSITIVE COUNT NO; POSITIVE DIFFERENTIAL NO; POSITIVE MORPHOLOGY NO
[2023-07-13 18:00] VITALS: BP 133/63; PULSE 88; RESP 18; TEMP 36.7; O2SAT 98
[2023-07-13 18:03] LABS: Anion Gap 6 (5-15); BUN 11 mg/dL (7-18); BUN/Creat Ratio 9.3 RATIO (10-20); Chloride 105 mmol/L (98-107); Creatinine, Serum 1.18 mg/dL (0.55-1.02); EST Glomerular Filtration Rate 52 mL/min (>60); Est Glom Filt Rate - Afr Amer 63 mL/min (>60); Glucose 91 mg/dL (74-106); Potassium 3.6 mmol/L (3.5-5.1); Sodium Level 139 mmol/L (136-145)
[2023-07-13 18:30] VITALS: BP 133/63; PULSE 88; RESP 18; TEMP 36.7; O2SAT 98
== END 2023-07-13 18:31 | disposition home or self-care (01) ==
PROVIDERS: Emergency Provider Emergency Medicine; PCP Family Medicine; Visit Provider Emergency Medicine
DX: R10.9 Unspecified abdominal pain (principal); N20.1 Calculus of ureter; Z96.0 Presence of urogenital implants; Z90.710 Acquired absence of both cervix and uterus; Z87.442 Personal history of urinary calculi; N13.30 Unspecified hydronephrosis
CPT/HCPCS: 74176; 80048; 81001; 85025; 87086; 96361; 96374; 96375; 99283; J7030; J2405

== ENCOUNTER 2023-08-01 06:24 | Day surgery (SDC) | payer OTHER, SELFPAY ==
[2023-08-01] VITALS (7 sets, daily range): BP systolic 103–125; BP diastolic 67–85; PULSE 74–90; RESP 16; TEMP 35.9–36.5; O2SAT 97–100; BMI 32.9
[2023-08-01] MEDS: Lactated Ringers 1,000 ML 15 ML IV (06:45)
[2023-08-01 07:15] LABS: Mucous, Urine 0 SEEN /hpf (<or=2+); Squamous Epithelial Cells - UA 0 SEEN /hpf (5-10)
[2023-08-01 07:37] LABS: Color, Urine Yellow (Yellow); Glucose, Dipstick Normal (Normal); Ketone-Dipstick Negative (Negative); Leukocyte Esterase-Dipstick 500 /ul (Negative); Nitrite-Dipstick Positive (Negative); Occult Blood-Urine 250 /ul (Negative); Protein-Dipstick 100 mg/dl (Negative); Urine Bilirubin Dipstick Negative (Negative); Urine Clarity Cloudy (Clear); Urine Urobilinogen Normal (Normal); Urine pH 6.5 (5.0 - 8.0)
[2023-08-01 07:50] LABS: Bacteria 2+ /hpf (None Seen); Red Blood Cells-Urine 0-5 SEEN /hpf (0-5); White Blood Cells >100 SEEN /hpf (0-5)
[2023-08-01] MEDS: Cefazolin 2 GM in 0.9% Normal Saline (100mL Bag) 100 ML IV (08:26)
--- NOTE | 2023-08-01 09:19 | HP.PCM_ITS ---
HPI - General General Date of Service: 08/01/23 Chief Complaint: Remaining stones in the left kidney and ureter HPI Narrative JOHNATHON MENDES, is a 48 F who presents for second stage procedure status post left ESWL stone workup really well but still has many fragments in the kidney and the ureter that need to be treated. She has a stent and so plan to laser these remaining fragments and placed a new stent. [facility] Medical History (Updated 07/25/23 @ 15:23 by Mindi Bhatia) Depression Anxiety Bruising Anemia Migraine headache Seizures Gastric reflux CPAP (continuous positive airway pressure) dependence Non-smoker Alcohol use disorder, mild, in sustained remission Social anxiety disorder Major depressive disorder, recurrent severe without psychotic features Home Medications ?Medication ?Instructions ?Recorded ?Last Taken ?Type melatonin 10 mg capsule 10 mg PO QHS PRN PRN Insomnia 09/07/21 Unknown History vortioxetine 20 mg tablet 20 mg PO QHS 07/13/23 07/31/23 History (Trintellix) cholecalciferol (vitamin D3) 25 25 mcg PO DAILY 07/25/23 07/31/23 History mcg (1,000 unit) tablet (Vitamin D3) dimenhydrinate 25 mg chewable 50 mg PO Q6H PRN nausea and 07/25/23 Unknown History tablet (Dramamine) vomiting hydroxyzine HCl 25 mg tablet 25 mg PO DAILY PRN panic attack 07/25/23 Unknown History magnesium carb,citrate,oxide 500 mg PO DAILY 07/25/23 07/31/23 History (Magnesium Complex) omeprazole 40 mg capsule,delayed 40 mg PO DAILY 07/25/23 07/31/23 History release ciprofloxacin HCl 500 mg tablet 500 mg PO BID #14 tabs 08/01/23 Unknown Rx (Cipro) oxycodone 5 mg tablet 5 mg PO Q6H PRN pain 7 days #14 08/01/23 Unknown Rx tabs phenazopyridine 100 mg tablet 100 mg PO TID PRN pain #20 tabs 08/01/23 Unknown Rx (Pyridium) tamsulosin 0.4 mg capsule (Flomax) 0.4 mg PO DAILY #10 caps 08/01/23 Unknown Rx Allergy/AdvReac Type Severity Reaction Status Date / Time Sulfa (Sulfonamide Allergy Hives Verified 08/01/23 06:37 Antibiotics) Surgical History (Updated 07/25/23 @ 15:23 by Mindi Bhatia) History of esophagogastroduodenoscopy (EGD) History of carpal tunnel surgery of right wrist History of carpal tunnel surgery of left wrist H/O gastric sleeve Hx of lithotripsy History of hysterectomy Social History Smoking Status: Never smoker Vital Signs Vital Signs Vital Signs: 08/01/23 06:44 08/01/23 06:44 Temperature 97.7 F L Temperature Source Temporal Pulse Rate 74 Respiratory Rate 16 Respiratory Pattern Normal Blood Pressure 125/85 H Blood Pressure Mean 98 Blood Pressure Source Monitor Blood Pressure Position Semi-Fowlers Blood Pressure Location Right Arm Pulse Ox 99 Oxygen Delivery Method Room Air Weight Weight: 84.3 kg Body Mass Index (BMI) 32.9 Results Lab / Micro Data Labs: Laboratory Results - last 24 hr 08/01/23 07:11: Urine Color Yellow, Urine Clarity Cloudy, Urine pH 6.5, Ur Specific [place] 1.020, Urine Protein 100 H, Urine Glucose (UA) Normal, Urine Ketones Negative, Urine Occult Blood 250 H, Urine Nitrite Positive H, Urine Bilirubin Negative, Urine Urobilinogen Normal, Ur Leukocyte Esterase 500 H, Urine RBC 0-5 SEEN, Urine WBC >100 SEEN, Ur Squamous Epith Cells 0 SEEN, Urine Bacteria 2+, Urine Mucus 0 SEEN
--- NOTE | 2023-08-01 09:19 | PCM.DC ---
Discharge Instructions Diet Discharge Diet: No restrictions Activity Discharge Activity: Return to Normal Activity and May Not Drive (while taking narcotic pain medications.) Dressing / Incision Call your doctor if you observe: Fever of 101 or Higher Follow Up Care Please Follow Up With: Varun Mabry MD When: Call [phone] for an appointment Test Results: Test results from this visit will be discussed in further detail at your follow-up appointment, if applicable. Discharge Plan Admission Primary Reason for Your Visit: Laser remaining stones Attending Provider: Varun Mabry Primary Care Provider: Ren Connor Instructions Print Language: Malawian Discharge Orders/Prescriptions Prescriptions: New ciprofloxacin HCl [Cipro] 500 mg tablet 500 mg PO BID Qty: 14 0RF tamsulosin [Flomax] 0.4 mg capsule 0.4 mg PO DAILY Qty: 10 0RF phenazopyridine [Pyridium] 100 mg tablet 100 mg PO TID PRN (Reason: pain) Qty: 20 0RF oxycodone 5 mg tablet 5 mg PO Q6H PRN (Reason: pain) 7 Days Qty: 14 0RF Continued melatonin 10 mg Capsule 10 mg PO QHS PRN PRN (Reason: Insomnia) Trintellix 20 mg tablet 20 mg PO QHS omeprazole 40 mg capsule,delayed release(DR/EC) 40 mg PO DAILY Magnesium Complex 300 mg magnesium tablet 500 mg PO DAILY cholecalciferol (vitamin D3) [Vitamin D3] 25 mcg (1,000 unit) tablet 25 mcg PO DAILY hydroxyzine HCl 25 mg tablet 25 mg PO DAILY PRN (Reason: panic attack) Dramamine 25 mg tablet,chewable 50 mg PO Q6H PRN (Reason: nausea and vomiting) Referrals / Follow Up: Ren Cononr MD [Primary Care Provider] - Varun Mabry MD [Med Staff - Active Staff] - Disposition Disposition (needs filled in before D/C Order can be placed): Home, Self Care
--- NOTE | 2023-08-01 09:19 | PCM.OPRPT ---
Report of Operation Date of Procedure: 08/01/23 Pre-Operative Diagnosis: Left ureteral and renal calculi Post-Operative Diagnosis: The same Surgery/Procedure Performed:: Cystoscopy left ureteroscopy laser lithotripsy of stones and stent placement Description of Surgical Findings:: This is a 48-year-old female she underwent shockwave lithotripsy for stones in the left kidney is a very large stone she understood that prior to the procedure that is very likely she was going to need more than 1 procedure to treat the stones because is very large stones underwent shockwave lithotripsy few weeks ago and the stone broke up really well but on KUB she had many many fragments in the kidney and many major fragments in the ureter. Today she she presents to laser the remaining fragments. We did send off the urine for culture preop since she was concerned for an infection but she was not having any active fevers or symptoms so we can proceed today. Patient was taken back to the operating room at this with induction of a general anesthetic she was placed in dorsolithotomy position. The urethrovaginal area prepped and draped in usual repair fashion grabbed the existing stent pulled out the meatus Hipolito tried to put a wire as a stent but it would not go so I then pulled the stent out completely I then went into the bladder with a flexible ureteroscope was able to get into the distal ureter quite easily with the flexible ureteroscope since it was pretty stented worked my way up the ureter and then encountered a large collection of stones in the left proximal ureter we then used a 200 ?m laser fiber and we used the thulium laser and proceeded to dust and laser the stones as I worked my way up the ureter I finally got into the kidney we then switched over to dusting settings and was able to then find a pile of stones on the upper pole the kidney this was lasered completely into small little pieces and after this was successfully completely lasered to small pieces that should pass on their own I then worked my way down the ureter those coming down the ureter then there is a few fragments passing a lasered these stone pieces and then pulled out the ureter successful laser of all the remaining fragments this point she just has the dust left in the kidney and the ureter will pass on its own I then put a wire up in the kidney and then backloaded the scope and then placed a stent on the left side. I will see her back in 1 week for cystoscopy stent removal and the stent was in good position. Successful lasering of the remaining fragments and I think at this point were done treating these stone. Surgeon: Varun Mabry Type of Anesthesia: General Drains: stent Admit VTE Documentation VTE Present on Admission: No VTE Mechan Device Prophylaxis: SCD's VTE Pharm Prophylaxis ordered?: No
== END 2023-08-01 10:25 | disposition home or self-care (01) ==
LOC: SDC 06:24 → AC 06:25
PROVIDERS: PCP Family Medicine; Referring Provider Urology; Visit Provider Urology
PROC: 0TJ98ZZ Inspection of Ureter, Via Natural or Artificial Opening Endoscopic (ICD-10-PCS; CPT 52352; principal; 2023-08-01 08:25)
DX: N20.2 Calculus of kidney with calculus of ureter (principal); K21.9 Gastro-esophageal reflux disease without esophagitis; Z79.899 Other long term (current) drug therapy
CPT/HCPCS: 52356; 00918; 81001; 87086; 87088; J7120; C1769; C2617; J2405

== ENCOUNTER → 2024-06-06 | Outpatient (CLI) | payer OTHER, SELFPAY ==
[2024-06-06 10:09] LABS: Absolute Lymphocyte Count 2.42 X10^3/uL (0.83-4.51); Basophil# 0.08 X10^3/uL; Basophil% 1.6 % (0-1); Eosinophil# 0.21 X10^3/uL; Eosinophils% 4.1 % (0-5); Hematocrit 33.2 % (37-47); Hemoglobin 10.3 g/dL (12.0-15.0); Lymphocyte # 2.42 X10^3/ul (0.83-4.51); Lymphocyte % 47.4 % (19-41); Mean Corpuscular Hgb 24.9 pg (27.0-32.0); Mean Corpuscular Volume 80.4 fL (81-99); Mean Platelet Vol. 11.6 fl (6.2-12.0); Monocyte# 0.38 X10^3/uL; Monocyte% 7.4 % (0-10); NRBC Flagged by Analyzer 0 % (0-5); Neutrophil # 2.01 X10^3/uL (2.7-7.7); Neutrophil % 39.3 % (47-70); Platelet Count 268 K/mm3 (150-450); RBC Distribution Width CV 13.2 % (11.6-14.6); RBC Distribution Width SD 38.4 fl (35.1-43.9); RET-HE 26.8 pg (30-35); Red Blood Count 4.13 M/mm3 (4.2-5.4); Reticulocyte Count 1.02 % (0.5-1.5); White Blood Count 5.1 K/mm3 (4.4-11.0)
[2024-06-06 12:10] LABS: AST(SGOT) 27 U/L (<=31); Alanine Aminotransfer ALT/SGPT 19 U/L (<=34); Albumin, Serum 4.2 g/dL (3.5-5.0); Alkaline Phosphatase 70 U/L (35-104); Bilirubin, Direct 0.13 mg/dL (0.00-0.30); Ferritin 8 ng/mL (22-378); Globulin 2.8 g/dL (2.2-4.2); Iron 33 ug/dL (50-170); Iron Binding Capacity,Total 425 ug/dL (250-450); Iron Binding Capacity,Unsat 392 ug/dL (228-428); Total Bilirubin 0.26 mg/dL (0.00-1.30)
== END | disposition home or self-care (01) ==
LOC: MFPLAB 08:53
PROVIDERS: PCP Family Medicine; Referring Provider Family Medicine; Visit Provider Family Medicine
DX: N95.1 Menopausal and female climacteric states (principal); D64.9 Anemia, unspecified
CPT/HCPCS: 36415; 80076; 82728; 83540; 83550; 85025; 85045

== ENCOUNTER → 2024-08-12 | Outpatient (CLI) | payer OTHER, SELFPAY ==
--- NOTE | 2024-08-12 15:22 | RAD_ITS ---
PROCEDURE: KNEE 4 OR MORE VIEWS 08/12/2024 REASON FOR EXAM: R KNEE PAIN. LATERAL PATELLAR, JOINTLINE TECHNIQUE: Four views of the right knee COMPARISON: None RAD/Knee 4 or More Views IMPRESSION: No acute fracture or dislocation. No large joint effusion. Minimal soft tissu e edema. No radiographic foreign body. Reading Location: [id number]
== END | disposition home or self-care (01) ==
LOC: MTRAD 15:10
PROVIDERS: PCP Family Medicine; Referring Provider Family Medicine; Visit Provider Family Medicine
DX: M25.561 Pain in right knee (principal)
CPT/HCPCS: 73564

== ENCOUNTER → 2024-12-24 | Outpatient (CLI) | payer OTHER, SELFPAY ==
[2024-12-24 12:18] LABS: Hematocrit 34.6 % (37-47); Hemoglobin 10.4 g/dL (12.0-15.0); Immature Granulocytes Count 0.010 X10^3/uL (0.0-0.0); Immature Reticulocyte Fraction 14.30 % (3.00-15.90); Mean Corp Hgb Conc 30.1 g/dL (32-36); Mean Corpuscular Volume 74.6 fL (81-99); Mean Platelet Vol. 11.4 fl (6.2-12.0); NRBC Flagged by Analyzer 0 % (0-5); Platelet Count 238 K/mm3 (150-450); RBC Distribution Width CV 15.6 % (11.6-14.6); RBC Distribution Width SD 42.1 fl (35.1-43.9); Red Blood Count 4.64 M/mm3 (4.2-5.4); Reticulocyte Count 0.74 % (0.5-1.5); White Blood Count 3.7 K/mm3 (4.4-11.0)
[2024-12-24 13:13] LABS: AST(SGOT) 22 U/L (<=31); Alanine Aminotransfer ALT/SGPT 18 U/L (<=34); Albumin, Serum 4.1 g/dL (3.5-5.0); Alkaline Phosphatase 64 U/L (35-104); Anion Gap 10 (5-15); BUN 21 mg/dL (4-19); BUN/Creat Ratio 23.4 RATIO (10-20); CORTISOL AM 11.90 ug/dL (6.02-18.40); Calcium,Total 9.0 mg/dL (7.6-11.0); Carbon Dioxide 24.8 mmol/L (21.0-32.0); Chloride 105 mmol/L (98-108); Ferritin 8 ng/mL (22-378); Follicle Stimulating Hormone 144.0 mIU/mL; Globulin 2.7 g/dL (2.2-4.2); Glucose 90 mg/dL (70-99); Iron 27 ug/dL (50-170); Potassium 4.1 mmol/L (3.3-5.1); Vitamin B12 392 pg/mL (180-914)
== END | disposition home or self-care (01) ==
LOC: MFPLAB 09:59
PROVIDERS: PCP Family Medicine; Visit Provider Family Medicine
DX: D64.9 Anemia, unspecified (principal); R23.2 Flushing
CPT/HCPCS: 36415; 80053; 82533; 82607; 82627; 82670; 82728; 83001; 83002; 83540; 84403; 84443; 85025; 85045; 82626